=== PATIENT | female | born 1960 | race Caucasian/White ===

== ENCOUNTER 2019-01-04 14:22 | Inpatient (IN) | payer OTHER, MEDICAID ==
--- NOTE | 2019-01-04 14:56 | EDM.PDOC ---
<Elier Ko - Last Filed: 01/04/19 14:50> ED HPI GENERAL MEDICAL PROBLEM - General Chief Complaint: Lower Extremity Injury/Pain Stated Complaint: [facility] Time Seen by Provider: 01/04/19 14:26 Source of Information: Reports: Patient History Limitations: Reports: No Limitations - History of Present Illness INITIAL COMMENTS - FREE TEXT/NARRATIVE: Joana Dunne is a 58 year old female who presents to the ED with right foot pain. She is a HER 3 positive lobular breast cancer patient. She received chemotherapy 3 1/2 weeks ago. Starting about 4 days ago she has been having this increased foot pain. She states that it feels a lot like Plantar Fascitis, but a lot worse. She describes the pain as a sharp pressure when aggravated and then a dull pain when she's non-weight bearing. She states that she only feels the pain whenever it's touched or a lot of pressure is applied. She works a school bus driving and she denies any sort of trauma or fall associated with the pain. She also denies any other PM hx. other than the breast cancer. Right Foot Pain Score (Numeric/FACES): 10 - Related Data Allergies Allergy/AdvReac Type Severity Reaction Status Date / Time methylphenidate Allergy Unknown UNKNOWN Verified 09/30/18 12:58 [From Ritalin] Social & Family History - Tobacco Use Smoking Status *Q: Never Smoker - Caffeine Use Caffeine Use: Reports: Coffee, Tea - Recreational Drug Use Recreational Drug Use: No Review of Systems - Review of Systems Constitutional: Reports: Chills, Fever (Measured a 100 and 103 fever over the last 3 days.) Respiratory: Reports: No Symptoms Cardiovascular: Reports: No Symptoms GI/Abdominal: Reports: No Symptoms Musculoskeletal: Reports: Foot Pain (right foot). Denies: Joint Pain (No pain in ankle, knee, or MTP joints), Joint Swelling Skin: Reports: Erythema (located on the Lateral aspect of the right foot. Patient just noticed upon arrival.). Denies: Cyanosis, Bruising, Change in Hair /Nails Neurological: Reports: No Symptoms ED EXAM, GENERAL - Physical Exam Exam: See Below Exam Limited By: No Limitations General Appearance: Alert, WD/WN, No Apparent Distress Eye Exam: Bilateral Eye: Normal Inspection Ears: Hearing Grossly Normal Respiratory/Chest: No Respiratory Distress, Lungs Clear, Normal Breath Sounds, No Accessory Muscle Use, Chest Non-Tender Cardiovascular: Normal Peripheral Pulses, Regular Rate, Rhythm, No Edema, No Gallop, No JVD, No Murmur, No Rub Peripheral Pulses: 2+: Posterior Tibial (L), Posterior Tibial (R), Dorsalis Pedis (L), Dorsalis Pedis (R) Extremities: Normal Capillary Refill, Pedal Edema (+1 edema noted on dorsal aspect of right foot), Limited Range of Motion (Passive and Active due to pain) , Increased Warmth (Within the erythematic region located on the lateral aspect of the right foot), Redness (On the lateral aspect of the right foot). No: Joint Swelling Neurological: Alert, Oriented, Normal Cognition, No Motor/Sensory Deficits, Abnormal Gait (Due to increased pain) Skin Exam: Warm, Dry, Intact, Erythema, Increased Warmth Course - Vital Signs Last Recorded V/S: Last Vital Signs Temp 98.6 F 01/04/19 14:36 Pulse 112 H 01/04/19 14:36 Resp 20 01/04/19 14:36 BP 107/70 01/04/19 14:36 Pulse Ox 93 L 01/04/19 14:36 - Orders/Labs/Meds Orders: Active Orders 24 hr Category Date Time Status Cardiac Monitoring [RC] . DIRECTED Care 01/04/19 14:56 Active Implanted Port Access [RC] ONETIME Care 01/04/19 14:56 Active CULTURE BLOOD [BC] Stat Lab 01/04/19 15:15 Received CULTURE BLOOD [BC] Stat Lab 01/04/19 15:40 Received Vancomycin [Vancocin] 2 gm Med 01/04/19 16:31 Active Sodium Chloride 0.9% [Normal Saline] 250 ml IV ONETIME Blood Culture x2 Reflex Set [OM.PC] Stat Oth 01/04/19 14:58 Ordered Medication Orders Vancomycin HCl 2 gm/ Sodium (Chloride) 250 mls @ 250 mls/hr IV ONETIME ONE Stop: 01/04/19 17:30 Labs: Laboratory Tests 01/04/19 01/04/19 01/04/19 Range/Units 15:15 15:15 15:15 WBC 15.41 H (3.98-10.04) K/mm3 RBC 3.22 L (3.98-5.22) M/mm3 Hgb 9.8 L (11.2-15.7) gm/L Hct 29.7 L (34.1-44.9) % MCV 92.2 (79.4-94.8) fl MCH 30.4 (25.6-32.2) pg MCHC 33.0 (32.2-35.5) g/dl RDW Std Deviation 44.0 (36.4-46.3) fL Plt Count 296 (182-369) K/mm3 MPV 9.9 (9.4-12.3) fl Neut % (Auto) 68.2 (34.0-71.1) % Lymph % (Auto) 15.4 L (19.3-51.7) % [place] % (Auto) 15.4 H (4.7-12.5) % Eos % (Auto) 0.2 L (0.7-5.8) Baso % (Auto) 0.3 (0.1-1.2) % Neut # (Auto) 10.52 H (1.56-6.13) K/mm3 Lymph # (Auto) 2.37 (1.18-3.74) K/mm3 [place] # (Auto) 2.38 H (0.24-0.36) K/mm3 Eos # (Auto) 0.03 L (0.04-0.36) K/mm3 Baso # (Auto) 0.04 (0.01-0.08) K/mm3 Manual Slide Review Abnormal smear ESR 117 H (0-20) mm/hr Sodium 133 L (136-145) mEq/L Potassium 3.4 L (3.5-5.1) mEq/L Chloride 97 L (98-107) mEq/L Carbon Dioxide 26 (21-32) mEq/L Anion Gap 13.4 (5-15) BUN 22 H (7-18) mg/dL Creatinine 1.0 (0.55-1.02) mg/dL Est Cr Clr Drug Dosing 54.51 mL/min Estimated GFR (MDRD) 57 (>60) mL/min BUN/Creatinine Ratio 22.0 H (14-18) Glucose 121 H (74-106) mg/dL Uric Acid 4.3 (2.6-6.0) mg/dL Calcium 9.1 (8.5-10.1) mg/dL Total Bilirubin 1.3 H (0.2-1.0) mg/dL AST 62 H (15-37) U/L ALT 100 H (14-59) U/L Alkaline Phosphatase 211 H (46-116) U/L C-Reactive Protein 42.7 H* (<1.0) mg/dL Total Protein 7.7 (6.4-8.2) g/dl Albumin 2.4 L (3.4-5.0) g/dl Globulin 5.3 gm/dL Albumin/Globulin Ratio 0.5 L (1-2) Meds: Medications Generic Name Dose Route Start Last Admin Trade Name Freq PRN Reason Stop Dose Admin Vancomycin HCl 2 gm/ Sodium 250 mls @ 250 mls/hr 01/04/19 16:31 Chloride IV 01/04/19 17:30 ONETIME ONE Discontinued Medications Generic Name Dose Route Start Last Admin Trade Name Freq PRN Reason Stop Dose Admin Hydromorphone HCl 1 mg 01/04/19 14:59 01/04/19 15:18 Dilaudid IVPUSH 01/04/19 15:00 1 mg ONETIME ONE Administration Departure - Departure Disposition: Admitted As Inpatient 65 Clinical Impression: Cellulitis Qualifiers: Site of cellulitis: extremity Site of cellulitis of extremity: lower extremity Laterality: right Qualified Code(s): L03.115 - Cellulitis of right lower limb Breast cancer Qualifiers: Breast location: unspecified site of breast Estrogen receptor status: unspecified Patient sex: female Laterality: left Qualified Code(s): C50.912 - Malignant neoplasm of unspecified site of left female breast - Discharge Information Referrals: Trini Barrientos MD [Primary Care Provider] - Forms: ED Department Discharge - My Orders Last 24 Hours: My Active Orders 01/04/19 14:56 Cardiac Monitoring [RC] . DIRECTED Implanted Port Access [RC] ONETIME 01/04/19 14:58 Blood Culture x2 Reflex Set [OM.PC] Stat 01/04/19 15:15 CULTURE BLOOD [BC] Stat 01/04/19 15:40 CULTURE BLOOD [BC] Stat 01/04/19 16:31 Vancomycin [Vancocin] 2 gm Sodium Chloride 0.9% [Normal Saline] 250 ml IV ONETIME - Assessment/Plan Last 24 Hours: My Active Orders 01/04/19 14:56 Cardiac Monitoring [RC] . DIRECTED Implanted Port Access [RC] ONETIME 01/04/19 14:58 Blood Culture x2 Reflex Set [OM.PC] Stat 01/04/19 15:15 CULTURE BLOOD [BC] Stat 01/04/19 15:40 CULTURE BLOOD [BC] Stat 01/04/19 16:31 Vancomycin [Vancocin] 2 gm Sodium Chloride 0.9% [Normal Saline] 250 ml IV ONETIME <Abilio Lamas - Last Filed: 01/04/19 17:17> Review of Systems - Review of Systems Review Of Systems: See Below Course - Re-Assessments/Exams Free Text/Narrative Re-Assessment/Exam: 01/04/19 16:44 I examined the patient myself and I agree with Belem's assessment and plan. I ordered my nurse to access her port. I ordered labs, blood cultures, US of her right leg to look for DVT and an x-ray of her foot. Her WBC was elevated at 15.41. Her Hgb was lower at 9.8. Her Na was low at 133. Her K was low at 3.4. Her glucose was elevated at 121. Her total bili is elevated at 1.3. Her AST is elevated at 62. Her ALT is elevated at 100. Her Alk Phos is elevated at 211. Her CRP is elevated at 42.7. Her US shows no DVT. Her x-ray of her foot shows soft tissue swelling. Abnormal mineralization within the base of the third metatarsal with cystic change. As mentioned above this may represent old injury although if patient has acute symptoms to this area, MRI could be considered to further evaluate. I have ordered vancomycin 2 grams IV. 01/04/19 17:11 Her Sed rate was elevated at 117. I feel she needs to be admitted. I called Dr Mendoza and he agreed to the admission. I did try to get an MRI of her foot but that was not available until tomorrow. Departure - Departure Time of Disposition: 17:20 Condition: Fair
[2019-01-04] MEDS ORDERED: HYDROmorphone 1 MG/ML Syringe IVPUSH ONE ×2 (14:59→19:47)
--- NOTE | 2019-01-04 15:55 | CR ---
Right foot: Four views of the right foot were obtained. Comparison: No prior foot exam. Findings: Mildly abnormal mineralization seen at the base of the third metatarsal with cystic change. This most likely represents old injury although if patient has acute symptoms, MRI is recommended to further evaluate. Joint spaces are preserved. Plantar spur seen. Spur is noted at the attachment of the Achilles tendon to the calcaneus. Soft tissue swelling is identified. Impression: 1. Soft tissue swelling. 2. Abnormal mineralization within the base of the third metatarsal with cystic change. As mentioned above, this may represent old injury although if patient has acute symptoms to this area, MRI could be considered to further evaluate. Diagnostic code #3
--- NOTE | 2019-01-04 16:44 | US ---
Right lower extremity deep venous ultrasound: Duplex and color flow imaging was obtained of the right common femoral, proximal greater saphenous, superficial femoral, popliteal, posterior tibial and peroneal veins. Left common femoral vein was also evaluated. Comparison: No prior venous imaging. Findings: Normal phasic flow, augmentation and compression is seen. Edema is noted within the dorsum of the right foot. Impression: 1. Edema within the dorsum of the right foot. 2. No evidence of deep venous thrombosis within the right lower extremity or within the left common femoral vein. Diagnostic code #2
[2019-01-04] MEDS ORDERED: Vancomycin 2 GM in Sodium Chloride 0.9% 500 ML IV ONE (17:18)
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
[2019-01-04] MEDS ORDERED: Ondansetron 4 MG Tab.DIS PO PRN (23:04)
[2019-01-04] MEDS ORDERED: HYDROmorphone 1 MG/ML Syringe IVPUSH PRN (23:04)
[2019-01-04] MEDS ORDERED: cefTRIAXone 2 GM Vial IV SCH (23:15)
[2019-01-05] MEDS: cefTRIAXone 2 GM in Sodium Chloride 0.9% 100 ML IV SCH ×2 (00:08→22:58)
[2019-01-05] MEDS ORDERED: Gadobenate Dimeglumine 529 MG/ML 20 ML SDV IVPUSH ONE (08:20)
[2019-01-05] MEDS ORDERED: HYDROmorphone 0.5 MG/0.5 ML Syringe IVPUSH PRN (08:25)
[2019-01-05] MEDS ORDERED: Sodium Chloride 0.9% 10 ML Syringe FLUSH SCH (08:30)
[2019-01-05] MEDS: oxyCODONE 5 MG Tab PO PRN ×3 (10:06→20:47)
--- NOTE | 2019-01-05 10:22 | MR ---
MRI right foot (without and with intravenous contrast) Technique: T1, fat-suppressed and post-gadolinium T1 fat-suppressed sagittal; T2 fat-suppressed, T2 and T1 fat-suppressed postcontrast coronal; T1, T2 fat-suppressed and T1 fat-suppressed postcontrast axial. Comparison: Previous plain film exam of 01/04/19. Findings: Erosions are identified within the base of the third and fourth metatarsals. Mild edema is noted around these areas of erosions as well as mild enhancement. Mild edema is also noted within the cuboid bone. Degenerative change seen within the tarsometatarsal joints. Diffuse soft tissue edema is seen within the foot. Achilles tendon appears intact. Tendons around the ankle appear intact. Impression: 1. Diffuse soft tissue edema presumably due to cellulitis. 2. Erosions noted within the base of the third and fourth metatarsals with surrounding edema and enhancement. Differential includes erosive arthritis, gout as well as osteomyelitis. 3. Degenerative change with joint space narrowing seen within the tarsometatarsal joints. 4. Mild edema within the cuboid bone with areas of enhancement with same differential as noted above Diagnostic code #3
--- NOTE | 2019-01-05 16:14 | PCM.PN ---
- General Info Date of Service: 01/05/19 Admission Dx/Problem (Free Text): Admission Diagnosis/Problem Admission Diagnosis/Problem Cellulitis Subjective Update: Patient continues to have pain overnight. She has been afebrile. Blood cultures did come back positive for gram-positive cocci in clusters. MRI scheduled for today. Functional Status: Reports: Pain Controlled - Review of Systems General: Reports: No Symptoms. Denies: Fever HEENT: Reports: No Symptoms Pulmonary: Reports: No Symptoms. Denies: Shortness of Breath, Cough Cardiovascular: Reports: No Symptoms Gastrointestinal: Reports: No Symptoms. Denies: Abdominal Pain, Constipation Musculoskeletal: Reports: Foot Pain Psychiatric: Reports: No Symptoms - Patient Data Vitals - Most Recent: Last Vital Signs Temp 98.9 F 01/05/19 11:51 Pulse 92 01/05/19 11:51 Resp 16 01/05/19 11:51 BP 137/87 01/05/19 11:51 Pulse Ox 98 01/05/19 11:51 Weight - Most Recent: 224 lb I&O - Last 24 Hours: Intake & Output 01/05/19 01/05/19 01/05/19 06:59 14:59 22:59 Intake Total 1800 120 Output Total 700 Balance 1100 120 Lab Results Last 24 Hours: Laboratory Results - last 24 hr 01/04/19 01/04/19 01/04/19 Range/Units 15:15 15:15 15:15 WBC 15.41 H (3.98-10.04) K/mm3 RBC 3.22 L (3.98-5.22) M/mm3 Hgb 9.8 L (11.2-15.7) gm/L Hct 29.7 L (34.1-44.9) % MCV 92.2 (79.4-94.8) fl MCH 30.4 (25.6-32.2) pg MCHC 33.0 (32.2-35.5) g/dl RDW Std Deviation 44.0 (36.4-46.3) fL Plt Count 296 (182-369) K/mm3 MPV 9.9 (9.4-12.3) fl Neut % (Auto) 68.2 (34.0-71.1) % Lymph % (Auto) 15.4 L (19.3-51.7) % [place] % (Auto) 15.4 H (4.7-12.5) % Eos % (Auto) 0.2 L (0.7-5.8) Baso % (Auto) 0.3 (0.1-1.2) % Neut # (Auto) 10.52 H (1.56-6.13) K/mm3 Lymph # (Auto) 2.37 (1.18-3.74) K/mm3 [place] # (Auto) 2.38 H (0.24-0.36) K/mm3 Eos # (Auto) 0.03 L (0.04-0.36) K/mm3 Baso # (Auto) 0.04 (0.01-0.08) K/mm3 Manual Slide Review Abnormal smear ESR 117 H (0-20) mm/hr Sodium 133 L (136-145) mEq/L Potassium 3.4 L (3.5-5.1) mEq/L Chloride 97 L (98-107) mEq/L Carbon Dioxide 26 (21-32) mEq/L Anion Gap 13.4 (5-15) BUN 22 H (7-18) mg/dL Creatinine 1.0 (0.55-1.02) mg/dL Est Cr Clr Drug Dosing 54.51 mL/min Estimated GFR (MDRD) 57 (>60) mL/min BUN/Creatinine Ratio 22.0 H (14-18) Glucose 121 H (74-106) mg/dL Hemoglobin A1c (4.50-6.20) % Uric Acid 4.3 (2.6-6.0) mg/dL Calcium 9.1 (8.5-10.1) mg/dL Phosphorus (2.6-4.7) mg/dL Magnesium (1.8-2.4) mg/dl Total Bilirubin 1.3 H (0.2-1.0) mg/dL AST 62 H (15-37) U/L ALT 100 H (14-59) U/L Alkaline Phosphatase 211 H (46-116) U/L C-Reactive Protein 42.7 H* (<1.0) mg/dL Total Protein 7.7 (6.4-8.2) g/dl Albumin 2.4 L (3.4-5.0) g/dl Globulin 5.3 gm/dL Albumin/Globulin Ratio 0.5 L (1-2) 01/05/19 01/05/19 01/05/19 Range/Units 06:28 06:28 06:28 WBC 12.25 H (3.98-10.04) K/mm3 RBC 3.13 L (3.98-5.22) M/mm3 Hgb 9.6 L (11.2-15.7) gm/L Hct 29.1 L (34.1-44.9) % MCV 93.0 (79.4-94.8) fl MCH 30.7 (25.6-32.2) pg MCHC 33.0 (32.2-35.5) g/dl RDW Std Deviation 44.8 (36.4-46.3) fL Plt Count 270 (182-369) K/mm3 MPV 10.0 (9.4-12.3) fl Neut % (Auto) 63.8 (34.0-71.1) % Lymph % (Auto) 15.1 L (19.3-51.7) % [place] % (Auto) 18.6 H (4.7-12.5) % Eos % (Auto) 1.6 (0.7-5.8) Baso % (Auto) 0.3 (0.1-1.2) % Neut # (Auto) 7.81 H (1.56-6.13) K/mm3 Lymph # (Auto) 1.85 (1.18-3.74) K/mm3 [place] # (Auto) 2.28 H (0.24-0.36) K/mm3 Eos # (Auto) 0.20 (0.04-0.36) K/mm3 Baso # (Auto) 0.04 (0.01-0.08) K/mm3 Manual Slide Review Abnormal smear ESR (0-20) mm/hr Sodium 132 L (136-145) mEq/L Potassium 4.0 (3.5-5.1) mEq/L Chloride 98 (98-107) mEq/L Carbon Dioxide 25 (21-32) mEq/L Anion Gap 13.0 (5-15) BUN 23 H (7-18) mg/dL Creatinine 0.8 (0.55-1.02) mg/dL Est Cr Clr Drug Dosing 67.29 mL/min Estimated GFR (MDRD) > 60 (>60) mL/min BUN/Creatinine Ratio 28.8 H (14-18) Glucose 100 (74-106) mg/dL Hemoglobin A1c 6.00 (4.50-6.20) % Uric Acid (2.6-6.0) mg/dL Calcium 9.2 (8.5-10.1) mg/dL Phosphorus 4.4 (2.6-4.7) mg/dL Magnesium 2.4 (1.8-2.4) mg/dl Total Bilirubin 0.7 (0.2-1.0) mg/dL AST 50 H (15-37) U/L ALT 85 H (14-59) U/L Alkaline Phosphatase 182 H (46-116) U/L C-Reactive Protein 22.5 H* (<1.0) mg/dL Total Protein 6.9 (6.4-8.2) g/dl Albumin 2.1 L (3.4-5.0) g/dl Globulin 4.8 gm/dL Albumin/Globulin Ratio 0.4 L (1-2) Asim Results Last 24 Hours: Microbiology 01/04/19 15:15 Aerobic Blood Culture - Preliminary Blood - Venous - Lab Draw NO GROWTH AFTER 1 DAY Anaerobic Blood Culture - Preliminary Gram Positive Cocci 01/04/19 15:40 Aerobic Blood Culture - Preliminary Blood - Venous NO GROWTH AFTER 1 DAY Anaerobic Blood Culture - Preliminary Gram Positive Cocci In Clustrs Med Orders - Current: Current Medications Hydromorphone HCl (Dilaudid) 0.5 mg IVPUSH Q2H PRN PRN Reason: Pain (severe 7-10) Last Admin: 01/05/19 11:50 Dose: 0.5 mg Ceftriaxone Sodium 2 gm/ (Sodium Chloride) 100 mls @ 200 mls/hr IV Q24H [facility] Last Admin: 01/05/19 00:08 Dose: 200 mls/hr Vancomycin HCl 1.25 gm/ Sodium (Chloride) 250 mls @ 167 mls/hr IV Q12H [facility] Last Admin: 01/05/19 11:48 Dose: 167 mls/hr Ondansetron HCl (Zofran Odt) 4 mg PO Q6H PRN PRN Reason: nausea, able to take PO Oxycodone HCl (Oxycodone) 5 mg PO Q4H PRN PRN Reason: Pain (moderate 4-6) Last Admin: 01/05/19 10:06 Dose: 5 mg Vancomycin HCl (Pharmacy To Dose - Vancomycin) 0 dose .XX ASDIRECTED PRN PRN Reason: PHARMACY TO DOSE Discontinued Medications Gadobenate Dimeglumine (Multihance) 20 ml IVPUSH ONETIME ONE Stop: 01/05/19 08:21 Last Admin: 01/05/19 08:50 Dose: 20 ml Hydromorphone HCl (Dilaudid) 1 mg IVPUSH ONETIME ONE Stop: 01/04/19 15:00 Last Admin: 01/04/19 15:18 Dose: 1 mg Hydromorphone HCl (Dilaudid) 1 mg IVPUSH ONETIME ONE Stop: 01/04/19 19:48 Last Admin: 01/04/19 20:01 Dose: 1 mg Hydromorphone HCl (Dilaudid) 0.5 mg IVPUSH Q2H PRN PRN Reason: Pain (severe 7-10) Vancomycin HCl 2 gm/ Sodium (Chloride) 250 mls @ 250 mls/hr IV ONETIME ONE Stop: 01/04/19 17:30 Last Admin: 01/04/19 17:34 Dose: Not Given Vancomycin HCl 2 gm/ Sodium (Chloride) 500 mls @ 250 mls/hr IV ONETIME ONE Stop: 01/04/19 18:30 Last Admin: 01/04/19 17:34 Dose: 250 mls/hr Vancomycin HCl 1 gm/ Sodium (Chloride) 250 mls @ 250 mls/hr IV ONETIME ONE Stop: 01/04/19 18:29 Last Admin: 01/04/19 17:50 Dose: Not Given Sodium Chloride (Saline Flush) 10 ml FLUSH ASDIRECTED AJIT Stop: 01/05/19 11:00 Last Admin: 01/05/19 08:50 Dose: 10 ml - Exam Quality Assessment: No: Supplemental Oxygen General: Alert, Oriented HEENT: Pupils Equal, Pupils Reactive Neck: Supple Lungs: Clear to Auscultation, Normal Respiratory Effort Cardiovascular: Regular Rate, Regular Rhythm GI/Abdominal Exam: Normal Bowel Sounds Extremities: Normal Range of Motion, Other (Right foot pain continues to be tender to palpation and mildly swollen. It is improved from yesterday. It is on the lateral dorsal aspect) Skin: Warm - Problem List & Annotations (1) Breast cancer SNOMED Code(s): 877143586 Code(s): C50.919 - MALIGNANT NEOPLASM OF UNSP SITE OF UNSPECIFIED FEMALE BREAST Status: Acute Current Visit: Yes Qualifiers: Breast location: unspecified site of breast Estrogen receptor status: unspecified Patient sex: female Laterality: left Qualified Code(s): C50.912 - Malignant neoplasm of unspecified site of left female breast (2) Cellulitis SNOMED Code(s): 578649380 Code(s): L03.90 - CELLULITIS, UNSPECIFIED Status: Acute Current Visit: Yes Qualifiers: Site of cellulitis: extremity Site of cellulitis of extremity: lower extremity Laterality: right Qualified Code(s): L03.115 - Cellulitis of right lower limb - Problem List Review Problem List Initiated/Reviewed/Updated: Yes - My Orders Last 24 Hours: My Active Orders 01/04/19 19:54 Resuscitation Status Routine 01/04/19 23:00 cefTRIAXone [Rocephin] 2 gm Sodium Chloride 0.9% [Normal Saline] 100 ml IV Q24H 01/04/19 23:04 Height and Weight [RC] 04 Oxygen Therapy [RC] PRN Up With Assistance [RC] ASDIRECTED VTE/DVT Education [RC] PER UNIT ROUTINE Vital Signs [RC] Q4HR Ondansetron [Zofran ODT] 4 mg PO Q6H PRN oxyCODONE 5 mg PO Q4H PRN 01/04/19 23:05 Intake and Output [RC] 04,16 01/05/19 07:47 Antiembolic Devices [RC] PER UNIT ROUTINE 01/05/19 08:25 HYDROmorphone [Dilaudid] 0.5 mg IVPUSH Q2H PRN 01/05/19 10:54 Notify Provider Consults [RC] ASDIRECTED Consult to Physician [CONS] Routine 01/05/19 10:59 Pharmacy to Dose - Vancomycin 0 dose .XX ASDIRECTED PRN 01/05/19 11:30 Vancomycin 1.25 gm Sodium Chloride 0.9% [Normal Saline] 250 ml IV Q12H 01/05/19 Breakfast Regular Diet [DIET] 01/06/19 05:11 C-REACTIVE PROTEIN [CHEM] AM CBC WITH AUTO DIFF [HEME] AM CMP [COMPREHENSIVE METABOLIC PN,CMP] [CHEM] AM 01/06/19 11:00 VANCOMYCIN TROUGH [CHEM] Timed - Plan Plan:: Cellulitis right foot with osteomyelitis * Patient started on vancomycin in the emergency room. * White count improved this morning and down from 15,000 to 12,000 * CBC in the morning * I will add Rocephin for gram-negative coverage * MRI in the morning. * Pain control * MRI findings are consistent with osteomyelitis. Blood cultures were also positive. * IV antibiotics will be tailored to blood culture results. * IV antibiotics for 6 weeks per orthopedics. Gram-positive cocci in clusters on blood culture results * Pending identification and sensitivity Supraventricular tachycardia * Patient did have a run of ventricular tachycardia that was asymptomatic that spontaneously converted during the day. * Continue monitoring on telemetry. HER 3 positive lobular breast cancer * First chemotherapy was 3 weeks ago. Next dose is due on Friday Hyponatremia * Repeat CMP in the morning. Hypokalemia * Resolved MRI results: 1. diffuse soft tissue edema presumably due to cellulitis, to. Erosions noted within the base of the third and fourth metatarsals with surrounding edema and enhancement. Differential includes erosive arthritis, gout , as well as osteomyelitis. 3. Degenerative change with joint space narrowing seen within the tarsometatarsal joints. 4. Mild edema within the cuboid bone with areas of enhancement with same differential as noted above. VTE prophylaxis: Lovenox Discharge planning: Patient will be discharged home with 6 weeks of IV antibiotics after blood culture results narrow antibiotic coverage. CODE STATUS: Full code
[2019-01-05] MEDS: Enoxaparin 40 MG/0.4 ML Syringe SUBCUT SCH (17:12)
[2019-01-06] MEDS: oxyCODONE 5 MG Tab PO PRN ×2 (02:45→21:16)
[2019-01-06] MEDS: Enoxaparin 40 MG/0.4 ML Syringe SUBCUT SCH (07:59)
--- NOTE | 2019-01-06 08:19 | PCM.PN ---
- General Info Date of Service: 01/06/19 Admission Dx/Problem (Free Text): Admission Diagnosis/Problem Admission Diagnosis/Problem Cellulitis Subjective Update: In to see Joana. She reports her pain is about the same. She is now complaining of some left knee pain so Dr. Meza who did order a x-ray of this. He contacted her oncologist, Dr. Coates, about concerns over bacteremia and her port. He reports that ideally she should've had blood drawn in the ED from the port which would show us some possible contamination for a baseline. He suggested obtained both peripheral and port accessed blood cultures after 48 hours of IV antibiotics. He would then like me to contact him in the future to discuss the results of these cultures. Otherwise CRP and white count had improved. She's not had any fevers. She has been receiving Rocephin and IV vancomycin. We discussed her likely need for continued hospitalization for some time until cultures return negative. Dr. Mendoza has been into see the patient as well. Functional Status: Reports: Pain Controlled, Tolerating Diet, Ambulating, Urinating. Denies: New Symptoms - Review of Systems General: Reports: Weakness. Denies: Fever, Fatigue, Malaise, Chills HEENT: Reports: No Symptoms. Denies: Headaches, Sore Throat, Rhinitis Pulmonary: Reports: No Symptoms. Denies: Shortness of Breath, Pleuritic Chest Pain, Cough, Sputum, Wheezing Cardiovascular: Reports: No Symptoms. Denies: Chest Pain, Palpitations, Dyspnea on Exertion Gastrointestinal: Reports: No Symptoms. Denies: Abdominal Pain, Constipation, Decreased Appetite, Diarrhea, Nausea, Vomiting Genitourinary: Reports: No Symptoms. Denies: Pain Musculoskeletal: Reports: Foot Pain (right foot ), Joint Pain (Left knee ) Skin: Reports: No Symptoms Neurological: Reports: Difficulty Walking. Denies: Headache, Numbness, Tingling , Trouble Speaking Psychiatric: Reports: No Symptoms. Denies: Confusion - Patient Data Vitals - Most Recent: Last Vital Signs Temp 98.8 F 01/06/19 05:21 Pulse 93 01/06/19 05:21 Resp 20 01/06/19 05:21 BP 139/84 01/06/19 05:21 Pulse Ox 94 L 01/06/19 05:21 Weight - Most Recent: 226 lb 12.8 oz I&O - Last 24 Hours: Intake & Output 01/05/19 01/06/19 01/06/19 22:59 06:59 14:59 Intake Total 1250 750 Output Total 700 700 Balance 550 50 Lab Results Last 24 Hours: Laboratory Results - last 24 hr 01/05/19 01/05/19 01/06/19 Range/Units 06:28 06:28 06:03 WBC 9.44 (3.98-10.04) K/mm3 RBC 3.09 L (3.98-5.22) M/mm3 Hgb 9.4 L (11.2-15.7) gm/L Hct 29.2 L (34.1-44.9) % MCV 94.5 (79.4-94.8) fl MCH 30.4 (25.6-32.2) pg MCHC 32.2 (32.2-35.5) g/dl RDW Std Deviation 45.3 (36.4-46.3) fL Plt Count 310 (182-369) K/mm3 MPV 9.8 (9.4-12.3) fl Neut % (Auto) 65.1 (34.0-71.1) % Lymph % (Auto) 18.0 L (19.3-51.7) % [place] % (Auto) 13.7 H (4.7-12.5) % Eos % (Auto) 2.4 (0.7-5.8) Baso % (Auto) 0.4 (0.1-1.2) % Neut # (Auto) 6.14 H (1.56-6.13) K/mm3 Lymph # (Auto) 1.70 (1.18-3.74) K/mm3 [place] # (Auto) 1.29 H (0.24-0.36) K/mm3 Eos # (Auto) 0.23 (0.04-0.36) K/mm3 Baso # (Auto) 0.04 (0.01-0.08) K/mm3 Sodium (136-145) mEq/L Potassium (3.5-5.1) mEq/L Chloride (98-107) mEq/L Carbon Dioxide (21-32) mEq/L Anion Gap (5-15) BUN (7-18) mg/dL Creatinine (0.55-1.02) mg/dL Est Cr Clr Drug Dosing mL/min Estimated GFR (MDRD) (>60) mL/min BUN/Creatinine Ratio (14-18) Glucose (74-106) mg/dL Hemoglobin A1c 6.00 (4.50-6.20) % Calcium (8.5-10.1) mg/dL Total Bilirubin (0.2-1.0) mg/dL AST (15-37) U/L ALT (14-59) U/L Alkaline Phosphatase (46-116) U/L C-Reactive Protein 22.5 H* (<1.0) mg/dL Total Protein (6.4-8.2) g/dl Albumin (3.4-5.0) g/dl Globulin gm/dL Albumin/Globulin Ratio (1-2) 01/06/19 Range/Units 06:03 WBC (3.98-10.04) K/mm3 RBC (3.98-5.22) M/mm3 Hgb (11.2-15.7) gm/L Hct (34.1-44.9) % MCV (79.4-94.8) fl MCH (25.6-32.2) pg MCHC (32.2-35.5) g/dl RDW Std Deviation (36.4-46.3) fL Plt Count (182-369) K/mm3 MPV (9.4-12.3) fl Neut % (Auto) (34.0-71.1) % Lymph % (Auto) (19.3-51.7) % [place] % (Auto) (4.7-12.5) % Eos % (Auto) (0.7-5.8) Baso % (Auto) (0.1-1.2) % Neut # (Auto) (1.56-6.13) K/mm3 Lymph # (Auto) (1.18-3.74) K/mm3 [place] # (Auto) (0.24-0.36) K/mm3 Eos # (Auto) (0.04-0.36) K/mm3 Baso # (Auto) (0.01-0.08) K/mm3 Sodium 133 L (136-145) mEq/L Potassium 3.9 (3.5-5.1) mEq/L Chloride 99 (98-107) mEq/L Carbon Dioxide 26 (21-32) mEq/L Anion Gap 11.9 (5-15) BUN 14 (7-18) mg/dL Creatinine 0.8 (0.55-1.02) mg/dL Est Cr Clr Drug Dosing 67.29 mL/min Estimated GFR (MDRD) > 60 (>60) mL/min BUN/Creatinine Ratio 17.5 (14-18) Glucose 97 (74-106) mg/dL Hemoglobin A1c (4.50-6.20) % Calcium 9.0 (8.5-10.1) mg/dL Total Bilirubin 0.8 (0.2-1.0) mg/dL AST 68 H (15-37) U/L ALT 94 H (14-59) U/L Alkaline Phosphatase 198 H (46-116) U/L C-Reactive Protein 18.7 H* (<1.0) mg/dL Total Protein 7.0 (6.4-8.2) g/dl Albumin 2.1 L (3.4-5.0) g/dl Globulin 4.9 gm/dL Albumin/Globulin Ratio 0.4 L (1-2) Asim Results Last 24 Hours: Microbiology 01/04/19 15:15 Aerobic Blood Culture - Preliminary Blood - Venous - Lab Draw NO GROWTH AFTER 1 DAY Anaerobic Blood Culture - Preliminary Gram Positive Cocci 01/04/19 15:40 Aerobic Blood Culture - Preliminary Blood - Venous NO GROWTH AFTER 1 DAY Anaerobic Blood Culture - Preliminary Staphylococcus Aureus Med Orders - Current: Current Medications Enoxaparin Sodium (Lovenox) 40 mg SUBCUT DAILY [facility] Last Admin: 01/06/19 07:59 Dose: 40 mg Hydromorphone HCl (Dilaudid) 0.5 mg IVPUSH Q2H PRN PRN Reason: Pain (severe 7-10) Last Admin: 01/05/19 11:50 Dose: 0.5 mg Ceftriaxone Sodium 2 gm/ (Sodium Chloride) 100 mls @ 200 mls/hr IV Q24H [facility] Last Admin: 01/05/19 22:58 Dose: 200 mls/hr Vancomycin HCl 1.25 gm/ Sodium (Chloride) 250 mls @ 167 mls/hr IV Q12H [facility] Last Admin: 01/05/19 23:38 Dose: 167 mls/hr Ondansetron HCl (Zofran Odt) 4 mg PO Q6H PRN PRN Reason: nausea, able to take PO Oxycodone HCl (Oxycodone) 5 mg PO Q4H PRN PRN Reason: Pain (moderate 4-6) Last Admin: 01/06/19 02:45 Dose: 5 mg Vancomycin HCl (Pharmacy To Dose - Vancomycin) 0 dose .XX ASDIRECTED PRN PRN Reason: PHARMACY TO DOSE Discontinued Medications Gadobenate Dimeglumine (Multihance) 20 ml IVPUSH ONETIME ONE Stop: 01/05/19 08:21 Last Admin: 01/05/19 08:50 Dose: 20 ml Hydromorphone HCl (Dilaudid) 1 mg IVPUSH ONETIME ONE Stop: 01/04/19 15:00 Last Admin: 01/04/19 15:18 Dose: 1 mg Hydromorphone HCl (Dilaudid) 1 mg IVPUSH ONETIME ONE Stop: 01/04/19 19:48 Last Admin: 01/04/19 20:01 Dose: 1 mg Hydromorphone HCl (Dilaudid) 0.5 mg IVPUSH Q2H PRN PRN Reason: Pain (severe 7-10) Vancomycin HCl 2 gm/ Sodium (Chloride) 250 mls @ 250 mls/hr IV ONETIME ONE Stop: 01/04/19 17:30 Last Admin: 01/04/19 17:34 Dose: Not Given Vancomycin HCl 2 gm/ Sodium (Chloride) 500 mls @ 250 mls/hr IV ONETIME ONE Stop: 01/04/19 18:30 Last Admin: 01/04/19 17:34 Dose: 250 mls/hr Vancomycin HCl 1 gm/ Sodium (Chloride) 250 mls @ 250 mls/hr IV ONETIME ONE Stop: 01/04/19 18:29 Last Admin: 01/04/19 17:50 Dose: Not Given Sodium Chloride (Saline Flush) 10 ml FLUSH ASDIRECTED AJIT Stop: 01/05/19 11:00 Last Admin: 01/05/19 08:50 Dose: 10 ml - Exam Quality Assessment: DVT Prophylaxis General: Alert, Oriented, Cooperative, No Acute Distress HEENT: Pupils Equal, Pupils Reactive, EOMI, Mucous Membr. Moist/[place] Neck: Supple, Trachea Midline, No JVD Lungs: Clear to Auscultation, Normal Respiratory Effort Cardiovascular: Regular Rate, Regular Rhythm GI/Abdominal Exam: Normal Bowel Sounds, Soft, Non-Tender, No Distention, No Abnormal Bruit (Female) Exam: Deferred Back Exam: Normal Inspection, Full Range of Motion Extremities: Normal Range of Motion, Leg Pain (right foot pain), Redness (left foot - improving), Other (Improving wound on left foot. Patient reports pain is about the same. ). No: Increased Warmth Peripheral Pulses: 2+: Radial (L), Radial (R), Dorsalis Pedis (L), Dorsalis Pedis (R) Skin: Warm, Dry, Intact Wound/Incisions: Healing Well, No Drainage, Erythema Improving Neurological: No New Focal Deficit Psy/Mental Status: Alert, Normal Affect, Normal Mood - Problem List & Annotations (1) Bacteremia SNOMED Code(s): 7150898 Code(s): R78.81 - BACTEREMIA Status: Acute Priority: High Current Visit : Yes (2) Osteomyelitis SNOMED Code(s): 49180164 Code(s): M86.9 - OSTEOMYELITIS, UNSPECIFIED Status: Suspected Priority: High Current Visit: Yes Qualifiers: Osteomyelitis type: unspecified type Osteomyelitis location: foot Laterality: right Qualified Code(s): M86.9 - Osteomyelitis, unspecified (3) Breast cancer SNOMED Code(s): 348375826 Code(s): C50.919 - MALIGNANT NEOPLASM OF UNSP SITE OF UNSPECIFIED FEMALE BREAST Status: Chronic Priority: Medium Current Visit: No Qualifiers: Breast location: unspecified site of breast Estrogen receptor status: unspecified Patient sex: female Laterality: left Qualified Code(s): C50.912 - Malignant neoplasm of unspecified site of left female breast (4) Cellulitis SNOMED Code(s): 864372389 Code(s): L03.90 - CELLULITIS, UNSPECIFIED Status: Acute Priority: High Current Visit: Yes Qualifiers: Site of cellulitis: extremity Site of cellulitis of extremity: lower extremity Laterality: right Qualified Code(s): L03.115 - Cellulitis of right lower limb (5) Knee pain SNOMED Code(s): 48710638 Code(s): M25.569 - PAIN IN UNSPECIFIED KNEE Status: Acute Priority: High Current Visit: Yes Qualifiers: Chronicity: acute Laterality: left Qualified Code(s): M25.562 - Pain in left knee (6) Port-A-Cath in place SNOMED Code(s): 713975208 Code(s): Z95.828 - PRESENCE OF OTHER VASCULAR IMPLANTS AND GRAFTS Status: Acute Priority: High Current Visit: Yes - Problem List Review Problem List Initiated/Reviewed/Updated: Yes - Plan Plan:: Cellulitis right foot with osteomyelitis * Patient started on vancomycin in the emergency room. * White count improved this morning and down from 15,000 to 12,000 * CBC in the morning * I will add Rocephin for gram-negative coverage * MRI in the morning. * Pain control * MRI findings are consistent with osteomyelitis. Blood cultures were also positive. * MRI results: * 1. diffuse soft tissue edema presumably due to cellulitis * 2. Erosions noted within the base of the third and fourth metatarsals with surrounding edema and enhancement. Differential includes erosive arthritis, gout , as well as osteomyelitis. * 3. Degenerative change with joint space narrowing seen within the tarsometatarsal joints. * 4. Mild edema within the cuboid bone with areas of enhancement with same differential as noted above. * IV antibiotics will be tailored to blood culture results. * IV antibiotics for 6 weeks per orthopedics. * Dr. Bowman, Ortho consulted * Port in place - has not been accessed while here Bacteremia * 4/4 staph aureus. * Pending further identification and sensitivity * Repeat blood cultures 48 hours after first dose of Abx - Both peripheral and through port per oncology Supraventricular tachycardia * Patient did have a run of ventricular tachycardia that was asymptomatic that spontaneously converted during the day. * Continue monitoring on telemetry. * No episodes today HER 3 positive lobular breast cancer * First chemotherapy was 3 weeks ago. Next dose is due on Friday Hyponatremia, stable * Monitor. S/P Hypokalemia Left knee pain * X-ray ordered per ortho VTE prophylaxis: Lovenox Discharge planning: Patient will be discharged home with 6 weeks of IV antibiotics after blood culture results narrow antibiotic coverage. CODE STATUS: Full code
[2019-01-06] MEDS ORDERED: Vancomycin 1 GM, Vancomycin 500 MG in Sodium Chloride 0.9% 500 ML IV SCH (12:00)
[2019-01-06] MEDS: Vancomycin 1 GM, Vancomycin 500 MG in Sodium Chloride 0.9% 500 ML IV SCH ×2 (12:42→23:13)
--- NOTE | 2019-01-06 14:29 | CONS ---
CONSULTING PHYSICIAN: Sean Bowman MD DATE OF CONSULTATION: 01/05/2019 CHIEF COMPLAINT: Right foot pain. HISTORY OF PRESENT ILLNESS: This is a 59-year-old female, who presented to the emergency department for right foot pain. She was subsequently admitted by the hospitalist and has began the workup there, subsequently had positive blood cultures. The right foot pain was worked up and had x-rays as well as MRI and was found to have possible osteomyelitis with no abscess. The patient has been undergoing chemotherapy, her first round was 3-1/2 weeks ago for lobular breast cancer. The patient states that about 4 days ago, she started having increasing foot pain as well as swelling. She has had pain in the past in the foot, but never like this and it become red as well. She subsequently states that she has had pain even with nonweightbearing which is just a dull pain, but it is much worse if it is touch or she applies pressure to the lower extremity. She is a senior technical business analyst and denies any sort of trauma or history of trauma or she denies she is diabetic. PHYSICAL EXAMINATION: GENERAL: Alert, lying in bed. Her skin is intact. There is a minor amount erythema noted over the lateral midfoot but it was very minimal. It does decrease with elevation of the lower extremity. She is able move all toes. There is no signs of ulcerations or open sores. She is able to dorsiflex plantar flex her ankle. She does have severe tenderness to palpation over the midfoot. Positive midfoot squeeze test otherwise neurovascularly intact from medial, plantar, and first dorsal was a 2+ dorsalis pedis and posterior tibial pulses radiographs. Radiographs were reviewed, showing significant erosions noted at the space of the 3rd and 4th metatarsals indicative of either chronic osteomyelitis or erosive arthropathy or possible Charcot. ASSESSMENT: Right foot possible osteomyelitis. PLAN: At this time, I did discuss with the patient that at this point, it is difficult to ascertain exactly when this happened in the foot. At this time, secondary to the patient's symptoms of just 4 days and with the chronic changes on radiographs, it is unlikely that this is an acute osteomyelitis without much bony change and radiographs at this point is that usually does take months to get them on the change on radiographs. At this point, we will plan on drawing a hemoglobin A1c and the patient to make sure this is not Charcot arthropathy and we will plan on following the patient's blood cultures and CRP to see if it improves. I would plan on seeing the patient back in a few week's time. I would also recommend Infectious Disease consultation and consultation with her cancer specialist to see if there is any way this could be metastasized as well. I will plan on following the patient as she is and end patient here at the hospital. MAGDI /[id number]
[2019-01-06] MEDS ORDERED: Docusate Sodium 100 MG Cap PO PRN (16:35)
[2019-01-06] MEDS: cefTRIAXone 2 GM in Sodium Chloride 0.9% 100 ML IV SCH (22:27)
[2019-01-07] MEDS: oxyCODONE 5 MG Tab PO PRN ×3 (02:38→16:52)
--- NOTE | 2019-01-07 06:20 | PCM.PN ---
<Matias Luque - Last Filed: 01/07/19 11:14> - General Info Date of Service: 01/07/19 Admission Dx/Problem (Free Text): Admission Diagnosis/Problem Admission Diagnosis/Problem Cellulitis Functional Status: Reports: Pain Controlled, Tolerating Diet, Ambulating, Urinating. Denies: New Symptoms - Review of Systems General: Reports: Weakness (imprvoing ). Denies: Fever, Fatigue, Malaise, Chills HEENT: Denies: Headaches, Sore Throat Pulmonary: Denies: Shortness of Breath, Cough, Sputum, Wheezing Cardiovascular: Denies: Chest Pain, Palpitations, Dyspnea on Exertion, Edema Gastrointestinal: Denies: Abdominal Pain, Constipation, Diarrhea, Nausea, Vomiting Genitourinary: Denies: Pain Musculoskeletal: Reports: Leg Pain (Left knee - stable ), Foot Pain (Right - improving ) Skin: Reports: No Symptoms Neurological: Reports: Difficulty Walking, Weakness, Gait Disturbance. Denies: Confusion, Trouble Speaking Psychiatric: Reports: No Symptoms - Patient Data Vitals - Most Recent: Last Vital Signs Temp 98.2 F 01/07/19 04:23 Pulse 95 01/07/19 04:23 Resp 16 01/07/19 04:23 BP 150/86 H 01/07/19 04:23 Pulse Ox 95 01/07/19 04:23 Weight - Most Recent: 227 lb 8 oz I&O - Last 24 Hours: Intake & Output 01/06/19 01/06/19 01/07/19 14:59 22:59 06:59 Intake Total 1220 1820 Output Total 900 1650 Balance 320 170 Lab Results Last 24 Hours: Laboratory Results - last 24 hr 01/06/19 01/06/19 01/06/19 Range/Units 06:03 06:03 11:06 WBC 9.44 (3.98-10.04) K/mm3 RBC 3.09 L (3.98-5.22) M/mm3 Hgb 9.4 L (11.2-15.7) gm/L Hct 29.2 L (34.1-44.9) % MCV 94.5 (79.4-94.8) fl MCH 30.4 (25.6-32.2) pg MCHC 32.2 (32.2-35.5) g/dl RDW Std Deviation 45.3 (36.4-46.3) fL Plt Count 310 (182-369) K/mm3 MPV 9.8 (9.4-12.3) fl Neut % (Auto) 65.1 (34.0-71.1) % Lymph % (Auto) 18.0 L (19.3-51.7) % [place] % (Auto) 13.7 H (4.7-12.5) % Eos % (Auto) 2.4 (0.7-5.8) Baso % (Auto) 0.4 (0.1-1.2) % Neut # (Auto) 6.14 H (1.56-6.13) K/mm3 Lymph # (Auto) 1.70 (1.18-3.74) K/mm3 [place] # (Auto) 1.29 H (0.24-0.36) K/mm3 Eos # (Auto) 0.23 (0.04-0.36) K/mm3 Baso # (Auto) 0.04 (0.01-0.08) K/mm3 Sodium 133 L (136-145) mEq/L Potassium 3.9 (3.5-5.1) mEq/L Chloride 99 (98-107) mEq/L Carbon Dioxide 26 (21-32) mEq/L Anion Gap 11.9 (5-15) BUN 14 (7-18) mg/dL Creatinine 0.8 (0.55-1.02) mg/dL Est Cr Clr Drug Dosing 67.29 mL/min Estimated GFR (MDRD) > 60 (>60) mL/min BUN/Creatinine Ratio 17.5 (14-18) Glucose 97 (74-106) mg/dL Calcium 9.0 (8.5-10.1) mg/dL Total Bilirubin 0.8 (0.2-1.0) mg/dL AST 68 H (15-37) U/L ALT 94 H (14-59) U/L Alkaline Phosphatase 198 H (46-116) U/L C-Reactive Protein 18.7 H* (<1.0) mg/dL Total Protein 7.0 (6.4-8.2) g/dl Albumin 2.1 L (3.4-5.0) g/dl Globulin 4.9 gm/dL Albumin/Globulin Ratio 0.4 L (1-2) Vancomycin Trough 12.7 (10.0-20.0) 01/07/19 Range/Units 05:05 WBC 8.26 (3.98-10.04) K/mm3 RBC 2.95 L (3.98-5.22) M/mm3 Hgb 9.0 L (11.2-15.7) gm/L Hct 27.8 L (34.1-44.9) % MCV 94.2 (79.4-94.8) fl MCH 30.5 (25.6-32.2) pg MCHC 32.4 (32.2-35.5) g/dl RDW Std Deviation 44.1 (36.4-46.3) fL Plt Count 302 (182-369) K/mm3 MPV 9.8 (9.4-12.3) fl Neut % (Auto) 57.6 (34.0-71.1) % Lymph % (Auto) 20.5 (19.3-51.7) % [place] % (Auto) 17.6 H (4.7-12.5) % Eos % (Auto) 3.3 (0.7-5.8) Baso % (Auto) 0.4 (0.1-1.2) % Neut # (Auto) 4.77 (1.56-6.13) K/mm3 Lymph # (Auto) 1.69 (1.18-3.74) K/mm3 [place] # (Auto) 1.45 H (0.24-0.36) K/mm3 Eos # (Auto) 0.27 (0.04-0.36) K/mm3 Baso # (Auto) 0.03 (0.01-0.08) K/mm3 Sodium (136-145) mEq/L Potassium (3.5-5.1) mEq/L Chloride (98-107) mEq/L Carbon Dioxide (21-32) mEq/L Anion Gap (5-15) BUN (7-18) mg/dL Creatinine (0.55-1.02) mg/dL Est Cr Clr Drug Dosing mL/min Estimated GFR (MDRD) (>60) mL/min BUN/Creatinine Ratio (14-18) Glucose (74-106) mg/dL Calcium (8.5-10.1) mg/dL Total Bilirubin (0.2-1.0) mg/dL AST (15-37) U/L ALT (14-59) U/L Alkaline Phosphatase (46-116) U/L C-Reactive Protein (<1.0) mg/dL Total Protein (6.4-8.2) g/dl Albumin (3.4-5.0) g/dl Globulin gm/dL Albumin/Globulin Ratio (1-2) Vancomycin Trough (10.0-20.0) Asim Results Last 24 Hours: Microbiology 01/04/19 15:40 Aerobic Blood Culture - Preliminary Blood - Venous Staphylococcus Aureus Anaerobic Blood Culture - Preliminary Staphylococcus Aureus 01/04/19 15:15 Aerobic Blood Culture - Preliminary Blood - Venous - Lab Draw Staphylococcus Aureus Anaerobic Blood Culture - Preliminary Staphylococcus Aureus Med Orders - Current: Current Medications Docusate Sodium (Colace) 100 mg PO DAILY PRN PRN Reason: Constipation Last Admin: 01/06/19 21:19 Dose: 100 mg Enoxaparin Sodium (Lovenox) 40 mg SUBCUT DAILY [facility] Last Admin: 01/06/19 07:59 Dose: 40 mg Hydromorphone HCl (Dilaudid) 0.5 mg IVPUSH Q2H PRN PRN Reason: Pain (severe 7-10) Last Admin: 01/05/19 11:50 Dose: 0.5 mg Ceftriaxone Sodium 2 gm/ (Sodium Chloride) 100 mls @ 200 mls/hr IV Q24H [facility] Last Admin: 01/06/19 22:27 Dose: 200 mls/hr Vancomycin HCl 1 gm/Vancomycin HCl 500 mg/ Sodium Chloride 500 mls @ 250 mls/ hr IV Q12H [facility] Last Admin: 01/06/19 23:13 Dose: 250 mls/hr Ondansetron HCl (Zofran Odt) 4 mg PO Q6H PRN PRN Reason: nausea, able to take PO Oxycodone HCl (Oxycodone) 5 mg PO Q4H PRN PRN Reason: Pain (moderate 4-6) Last Admin: 01/07/19 02:38 Dose: 5 mg Vancomycin HCl (Pharmacy To Dose - Vancomycin) 0 dose .XX ASDIRECTED PRN PRN Reason: PHARMACY TO DOSE Discontinued Medications Gadobenate Dimeglumine (Multihance) 20 ml IVPUSH ONETIME ONE Stop: 01/05/19 08:21 Last Admin: 01/05/19 08:50 Dose: 20 ml Heparin Sodium (Porcine) (Heparin Lock Flush 100 Units/Ml) 500 units FLUSH ASDIRECTED ONE Stop: 01/06/19 21:46 Last Admin: 01/06/19 22:26 Dose: 500 units Hydromorphone HCl (Dilaudid) 1 mg IVPUSH ONETIME ONE Stop: 01/04/19 15:00 Last Admin: 01/04/19 15:18 Dose: 1 mg Hydromorphone HCl (Dilaudid) 1 mg IVPUSH ONETIME ONE Stop: 01/04/19 19:48 Last Admin: 01/04/19 20:01 Dose: 1 mg Hydromorphone HCl (Dilaudid) 0.5 mg IVPUSH Q2H PRN PRN Reason: Pain (severe 7-10) Vancomycin HCl 2 gm/ Sodium (Chloride) 250 mls @ 250 mls/hr IV ONETIME ONE Stop: 01/04/19 17:30 Last Admin: 01/04/19 17:34 Dose: Not Given Vancomycin HCl 2 gm/ Sodium (Chloride) 500 mls @ 250 mls/hr IV ONETIME ONE Stop: 01/04/19 18:30 Last Admin: 01/04/19 17:34 Dose: 250 mls/hr Vancomycin HCl 1 gm/ Sodium (Chloride) 250 mls @ 250 mls/hr IV ONETIME ONE Stop: 01/04/19 18:29 Last Admin: 01/04/19 17:50 Dose: Not Given Vancomycin HCl 1.25 gm/ Sodium (Chloride) 250 mls @ 167 mls/hr IV Q12H [facility] Last Admin: 01/06/19 11:46 Dose: Not Given Vancomycin HCl 1 gm/Vancomycin HCl 500 mg/ Sodium Chloride 500 mls @ 250 mls/ hr IV Q12H [facility] Last Admin: 01/06/19 12:20 Dose: Not Given Sodium Chloride (Saline Flush) 10 ml FLUSH ASDIRECTED [facility] Stop: 01/05/19 11:00 Last Admin: 01/05/19 08:50 Dose: 10 ml - Exam Quality Assessment: DVT Prophylaxis General: Alert, Oriented, Cooperative, No Acute Distress HEENT: Pupils Equal, Pupils Reactive, EOMI, Mucous Membr. Moist/[place] Neck: Supple, Trachea Midline, No JVD Lungs: Clear to Auscultation, Normal Respiratory Effort Cardiovascular: Regular Rate, Regular Rhythm GI/Abdominal Exam: Normal Bowel Sounds, Soft, Non-Tender, No Distention, No Abnormal Bruit (Female) Exam: Deferred Back Exam: Normal Inspection, Full Range of Motion Extremities: Normal Capillary Refill, Pedal Edema (minimal left edema 2/2 inflammation ), Leg Pain (right foot - improved, left knee -stable ), Redness ( improved to resolved ). No: Increased Warmth Peripheral Pulses: 2+: Radial (L), Radial (R), Dorsalis Pedis (L), Dorsalis Pedis (R) Skin: Warm, Dry, Intact Wound/Incisions: No Drainage, Erythema Improving Neurological: No New Focal Deficit Psy/Mental Status: Alert, Normal Affect, Normal Mood - Problem List & Annotations (1) Bacteremia SNOMED Code(s): 5097390 Code(s): R78.81 - BACTEREMIA Status: Acute Priority: High Current Visit : Yes (2) Osteomyelitis SNOMED Code(s): 02564438 Code(s): M86.9 - OSTEOMYELITIS, UNSPECIFIED Status: Suspected Priority: High Current Visit: Yes Qualifiers: Osteomyelitis type: unspecified type Osteomyelitis location: foot Laterality: right Qualified Code(s): M86.9 - Osteomyelitis, unspecified (3) Breast cancer SNOMED Code(s): 865736859 Code(s): C50.919 - MALIGNANT NEOPLASM OF UNSP SITE OF UNSPECIFIED FEMALE BREAST Status: Chronic Priority: Medium Current Visit: No Qualifiers: Breast location: unspecified site of breast Estrogen receptor status: unspecified Patient sex: female Laterality: left Qualified Code(s): C50.912 - Malignant neoplasm of unspecified site of left female breast (4) Cellulitis SNOMED Code(s): 421290032 Code(s): L03.90 - CELLULITIS, UNSPECIFIED Status: Acute Priority: High Current Visit: Yes Qualifiers: Site of cellulitis: extremity Site of cellulitis of extremity: lower extremity Laterality: right Qualified Code(s): L03.115 - Cellulitis of right lower limb (5) Knee pain SNOMED Code(s): 49591484 Code(s): M25.569 - PAIN IN UNSPECIFIED KNEE Status: Acute Priority: High Current Visit: Yes Qualifiers: Chronicity: acute Laterality: left Qualified Code(s): M25.562 - Pain in left knee (6) Port-A-Cath in place SNOMED Code(s): 747365155 Code(s): Z95.828 - PRESENCE OF OTHER VASCULAR IMPLANTS AND GRAFTS Status: Acute Priority: High Current Visit: Yes - Problem List Review Problem List Initiated/Reviewed/Updated: Yes - My Orders Last 24 Hours: My Active Orders 01/06/19 15:53 Consult to Case Management/Career Technical Education Instructor [CONS] Routine 01/06/19 21:01 Blood Culture x2 Reflex Set [OM.PC] Stat 01/06/19 21:40 CULTURE BLOOD [BC] Stat 01/06/19 21:55 CULTURE BLOOD [BC] Stat 01/06/19 22:15 CULTURE BLOOD [BC] Routine 01/07/19 05:05 CBC WITH AUTO DIFF [HEME] AM CMP [COMPREHENSIVE METABOLIC PN,CMP] [CHEM] AM CRP [C-REACTIVE PROTEIN] [CHEM] AM MAGNESIUM [CHEM] AM 01/08/19 05:11 CBC WITH AUTO DIFF [HEME] AM CMP [COMPREHENSIVE METABOLIC PN,CMP] [CHEM] AM CRP [C-REACTIVE PROTEIN] [CHEM] AM MAGNESIUM [CHEM] AM 01/09/19 05:11 CBC WITH AUTO DIFF [HEME] AM CMP [COMPREHENSIVE METABOLIC PN,CMP] [CHEM] AM CRP [C-REACTIVE PROTEIN] [CHEM] AM MAGNESIUM [CHEM] AM 01/10/19 05:11 CBC WITH AUTO DIFF [HEME] AM CMP [COMPREHENSIVE METABOLIC PN,CMP] [CHEM] AM CRP [C-REACTIVE PROTEIN] [CHEM] AM MAGNESIUM [CHEM] AM - Plan Plan:: Cellulitis right foot with osteomyelitis * Patient started on vancomycin in the emergency room. * White count improved this morning and down from 15,000 to 12,000 * CBC in the morning * I will add Rocephin for gram-negative coverage * Pain control * MRI findings are consistent with osteomyelitis. Blood cultures were also positive. * MRI results: * 1. diffuse soft tissue edema presumably due to cellulitis * 2. Erosions noted within the base of the third and fourth metatarsals with surrounding edema and enhancement. Differential includes erosive arthritis, gout , as well as osteomyelitis. * 3. Degenerative change with joint space narrowing seen within the tarsometatarsal joints. * 4. Mild edema within the cuboid bone with areas of enhancement with same differential as noted above. * IV antibiotics will be tailored to blood culture results. * IV antibiotics for 6 weeks per orthopedics. * Dr. Bowman, Ortho consulted * Port in place - has not been accessed while here Bacteremia * / staph aureus. * Pending further identification and sensitivity * Repeat blood cultures 48 hours after first dose of Abx - Both peripheral and through port per oncology Supraventricular tachycardia * Patient did have a run of ventricular tachycardia that was asymptomatic that spontaneously converted during the day. * Continue monitoring on telemetry. * No episodes aside from inial event HER 3 positive lobular breast cancer * First chemotherapy was 3 weeks ago. Next dose is due on Friday S/P Hyponatremia * Monitor. S/P Hypokalemia Left knee pain, stable * X-ray ordered per ortho * Dr. Bowman reports osteopenia and arthritis. No fracture or dislocation. Surgical plate in place. * Suggests follow-up for steroid injection once bacteremia/infection clears up VTE prophylaxis: Lovenox Discharge planning: Patient will be discharged home with 6 weeks of IV antibiotics after blood culture results narrow antibiotic coverage. CODE STATUS: Full code CM/SW for discharge planning LOS>96 HR due to repeat blood cultures and need for continued IV antibiotics <Winter Mendoza - Last Filed: 01/07/19 14:37> - Patient Data Vitals - Most Recent: Last Vital Signs Temp 98.8 F 01/07/19 08:22 Pulse 96 01/07/19 08:22 Resp 18 01/07/19 08:22 BP 141/79 H 01/07/19 09:25 Pulse Ox 97 01/07/19 08:22 I&O - Last 24 Hours: Intake & Output 01/06/19 01/07/19 01/07/19 22:59 06:59 14:59 Intake Total 1220 1820 360 Output Total 900 1650 Balance 320 170 360 Lab Results Last 24 Hours: Laboratory Results - last 24 hr 01/07/19 01/07/19 Range/Units 05:05 05:05 WBC 8.26 (3.98-10.04) K/mm3 RBC 2.95 L (3.98-5.22) M/mm3 Hgb 9.0 L (11.2-15.7) gm/L Hct 27.8 L (34.1-44.9) % MCV 94.2 (79.4-94.8) fl MCH 30.5 (25.6-32.2) pg MCHC 32.4 (32.2-35.5) g/dl RDW Std Deviation 44.1 (36.4-46.3) fL Plt Count 302 (182-369) K/mm3 MPV 9.8 (9.4-12.3) fl Neut % (Auto) 57.6 (34.0-71.1) % Lymph % (Auto) 20.5 (19.3-51.7) % [place] % (Auto) 17.6 H (4.7-12.5) % Eos % (Auto) 3.3 (0.7-5.8) Baso % (Auto) 0.4 (0.1-1.2) % Neut # (Auto) 4.77 (1.56-6.13) K/mm3 Lymph # (Auto) 1.69 (1.18-3.74) K/mm3 [place] # (Auto) 1.45 H (0.24-0.36) K/mm3 Eos # (Auto) 0.27 (0.04-0.36) K/mm3 Baso # (Auto) 0.03 (0.01-0.08) K/mm3 Manual Slide Review Abnormal smear Sodium 137 (136-145) mEq/L Potassium 3.8 (3.5-5.1) mEq/L Chloride 103 (98-107) mEq/L Carbon Dioxide 26 (21-32) mEq/L Anion Gap 11.8 (5-15) BUN 8 (7-18) mg/dL Creatinine 0.7 (0.55-1.02) mg/dL Est Cr Clr Drug Dosing 76.90 mL/min Estimated GFR (MDRD) > 60 (>60) mL/min BUN/Creatinine Ratio 11.4 L (14-18) Glucose 104 (74-106) mg/dL Calcium 8.8 (8.5-10.1) mg/dL Magnesium 2.1 (1.8-2.4) mg/dl Total Bilirubin 0.8 (0.2-1.0) mg/dL AST 93 H (15-37) U/L ALT 121 H (14-59) U/L Alkaline Phosphatase 210 H (46-116) U/L C-Reactive Protein 17.5 H* (<1.0) mg/dL Total Protein 6.9 (6.4-8.2) g/dl Albumin 2.0 L (3.4-5.0) g/dl Globulin 4.9 gm/dL Albumin/Globulin Ratio 0.4 L (1-2) Asim Results Last 24 Hours: Microbiology 01/04/19 15:15 Aerobic Blood Culture - Preliminary Blood - Venous - Lab Draw Staphylococcus Aureus Anaerobic Blood Culture - Preliminary Staphylococcus Aureus 01/04/19 15:40 Aerobic Blood Culture - Preliminary Blood - Venous Staphylococcus Aureus Anaerobic Blood Culture - Preliminary Staphylococcus Aureus Med Orders - Current: Current Medications Docusate Sodium (Colace) 100 mg PO DAILY PRN PRN Reason: Constipation Last Admin: 01/06/19 21:19 Dose: 100 mg Enoxaparin Sodium (Lovenox) 40 mg SUBCUT DAILY [facility] Last Admin: 01/07/19 08:19 Dose: 40 mg Hydromorphone HCl (Dilaudid) 0.5 mg IVPUSH Q2H PRN PRN Reason: Pain (severe 7-10) Last Admin: 01/05/19 11:50 Dose: 0.5 mg Ceftriaxone Sodium 2 gm/ (Sodium Chloride) 100 mls @ 200 mls/hr IV Q24H [facility] Last Admin: 01/06/19 22:27 Dose: 200 mls/hr Vancomycin HCl 1 gm/Vancomycin HCl 500 mg/ Sodium Chloride 500 mls @ 250 mls/ hr IV Q12H [facility] Last Admin: 01/07/19 12:53 Dose: 250 mls/hr Ondansetron HCl (Zofran Odt) 4 mg PO Q6H PRN PRN Reason: nausea, able to take PO Oxycodone HCl (Oxycodone) 5 mg PO Q4H PRN PRN Reason: Pain (moderate 4-6) Last Admin: 01/07/19 08:22 Dose: 5 mg Vancomycin HCl (Pharmacy To Dose - Vancomycin) 0 dose .XX ASDIRECTED PRN PRN Reason: PHARMACY TO DOSE Discontinued Medications Gadobenate Dimeglumine (Multihance) 20 ml IVPUSH ONETIME ONE Stop: 01/05/19 08:21 Last Admin: 01/05/19 08:50 Dose: 20 ml Heparin Sodium (Porcine) (Heparin Lock Flush 100 Units/Ml) 500 units FLUSH ASDIRECTED ONE Stop: 01/06/19 21:46 Last Admin: 01/06/19 22:26 Dose: 500 units Hydromorphone HCl (Dilaudid) 1 mg IVPUSH ONETIME ONE Stop: 01/04/19 15:00 Last Admin: 01/04/19 15:18 Dose: 1 mg Hydromorphone HCl (Dilaudid) 1 mg IVPUSH ONETIME ONE Stop: 01/04/19 19:48 Last Admin: 01/04/19 20:01 Dose: 1 mg Hydromorphone HCl (Dilaudid) 0.5 mg IVPUSH Q2H PRN PRN Reason: Pain (severe 7-10) Vancomycin HCl 2 gm/ Sodium (Chloride) 250 mls @ 250 mls/hr IV ONETIME ONE Stop: 01/04/19 17:30 Last Admin: 01/04/19 17:34 Dose: Not Given Vancomycin HCl 2 gm/ Sodium (Chloride) 500 mls @ 250 mls/hr IV ONETIME ONE Stop: 01/04/19 18:30 Last Admin: 01/04/19 17:34 Dose: 250 mls/hr Vancomycin HCl 1 gm/ Sodium (Chloride) 250 mls @ 250 mls/hr IV ONETIME ONE Stop: 01/04/19 18:29 Last Admin: 01/04/19 17:50 Dose: Not Given Vancomycin HCl 1.25 gm/ Sodium (Chloride) 250 mls @ 167 mls/hr IV Q12H [facility] Last Admin: 01/06/19 11:46 Dose: Not Given Vancomycin HCl 1 gm/Vancomycin HCl 500 mg/ Sodium Chloride 500 mls @ 250 mls/ hr IV Q12H [facility] Last Admin: 01/06/19 12:20 Dose: Not Given Sodium Chloride (Saline Flush) 10 ml FLUSH ASDIRECTED [facility] Stop: 01/05/19 11:00 Last Admin: 01/05/19 08:50 Dose: 10 ml - Problem List & Annotations (1) Breast cancer SNOMED Code(s): 733000862 Code(s): C50.919 - MALIGNANT NEOPLASM OF UNSP SITE OF UNSPECIFIED FEMALE BREAST Status: Chronic Priority: Medium Current Visit: No Qualifiers: Breast location: unspecified site of breast Estrogen receptor status: unspecified Patient sex: female Laterality: left Qualified Code(s): C50.912 - Malignant neoplasm of unspecified site of left female breast (2) Cellulitis SNOMED Code(s): 855236163 Code(s): L03.90 - CELLULITIS, UNSPECIFIED Status: Acute Priority: High Current Visit: Yes Qualifiers: Site of cellulitis: extremity Site of cellulitis of extremity: lower extremity Laterality: right Qualified Code(s): L03.115 - Cellulitis of right lower limb - My Orders Last 24 Hours: My Active Orders 01/06/19 16:35 Docusate Sodium [Colace] 100 mg PO DAILY PRN 01/08/19 11:30 VANCOMYCIN TROUGH [CHEM] Timed - Plan Plan:: Patient was seen and examined and I agree with the above plan.
[2019-01-07] MEDS: Enoxaparin 40 MG/0.4 ML Syringe SUBCUT SCH (08:19)
[2019-01-07] MEDS: Vancomycin 1 GM, Vancomycin 500 MG in Sodium Chloride 0.9% 500 ML IV SCH (12:53)
--- NOTE | 2019-01-07 13:57 | CR ---
Left knee: Two views of the left knee were obtained. Comparison: No prior knee exam. Plate and screws noted within the proximal tibia. Moderately severe medial joint space narrowing is seen. Slight concavity which appears to be due to old fracture noted within the lateral tibial plateau. Spurring is noted within the patella. Joint effusion is seen. No acute abnormality is appreciated. Impression: 1. Degenerative change as noted above. Old healed fracture within the lateral tibial plateau with plate and screws. 2. Joint effusion. 3. Nothing acute is definitely appreciated. Diagnostic code #3 I agree with preliminary report issued by [facility] ([facility] report finalized on 01/06/19, 3:15 PM Central Time.
[2019-01-08] MEDS: cefTRIAXone 2 GM in Sodium Chloride 0.9% 100 ML IV SCH (00:14)
[2019-01-08] MEDS: Vancomycin 1 GM, Vancomycin 500 MG in Sodium Chloride 0.9% 500 ML IV SCH ×2 (00:52→12:19)
[2019-01-08] MEDS: oxyCODONE 5 MG Tab PO PRN ×2 (02:41→10:05)
--- NOTE | 2019-01-08 06:28 | PCM.PN ---
- General Info Date of Service: 01/08/19 Admission Dx/Problem (Free Text): Admission Diagnosis/Problem Admission Diagnosis/Problem Cellulitis - Patient Data Vitals - Most Recent: Last Vital Signs Temp 98.2 F 01/08/19 05:08 Pulse 86 01/08/19 05:08 Resp 15 01/08/19 05:08 BP 158/90 H 01/08/19 05:08 Pulse Ox 93 L 01/08/19 05:08 Weight - Most Recent: 226 lb 8 oz I&O - Last 24 Hours: Intake & Output 01/07/19 01/07/19 01/08/19 14:59 22:59 06:59 Intake Total 360 2170 1400 Output Total 350 2400 Balance 360 1820 -1000 Lab Results Last 24 Hours: Laboratory Results - last 24 hr 01/07/19 01/08/19 Range/Units 05:05 05:35 WBC 8.59 (3.98-10.04) K/mm3 RBC 2.98 L (3.98-5.22) M/mm3 Hgb 9.0 L (11.2-15.7) gm/L Hct 28.2 L (34.1-44.9) % MCV 94.6 (79.4-94.8) fl MCH 30.2 (25.6-32.2) pg MCHC 31.9 L (32.2-35.5) g/dl RDW Std Deviation 44.9 (36.4-46.3) fL Plt Count 346 (182-369) K/mm3 MPV 9.3 L (9.4-12.3) fl Neut % (Auto) 61.4 (34.0-71.1) % Lymph % (Auto) 17.5 L (19.3-51.7) % [place] % (Auto) 15.0 H (4.7-12.5) % Eos % (Auto) 4.9 (0.7-5.8) Baso % (Auto) 0.5 (0.1-1.2) % Neut # (Auto) 5.28 (1.56-6.13) K/mm3 Lymph # (Auto) 1.50 (1.18-3.74) K/mm3 [place] # (Auto) 1.29 H (0.24-0.36) K/mm3 Eos # (Auto) 0.42 H (0.04-0.36) K/mm3 Baso # (Auto) 0.04 (0.01-0.08) K/mm3 Sodium 137 (136-145) mEq/L Potassium 3.8 (3.5-5.1) mEq/L Chloride 103 (98-107) mEq/L Carbon Dioxide 26 (21-32) mEq/L Anion Gap 11.8 (5-15) BUN 8 (7-18) mg/dL Creatinine 0.7 (0.55-1.02) mg/dL Est Cr Clr Drug Dosing 76.90 mL/min Estimated GFR (MDRD) > 60 (>60) mL/min BUN/Creatinine Ratio 11.4 L (14-18) Glucose 104 (74-106) mg/dL Calcium 8.8 (8.5-10.1) mg/dL Magnesium 2.1 (1.8-2.4) mg/dl Total Bilirubin 0.8 (0.2-1.0) mg/dL AST 93 H (15-37) U/L ALT 121 H (14-59) U/L Alkaline Phosphatase 210 H (46-116) U/L C-Reactive Protein 17.5 H* (<1.0) mg/dL Total Protein 6.9 (6.4-8.2) g/dl Albumin 2.0 L (3.4-5.0) g/dl Globulin 4.9 gm/dL Albumin/Globulin Ratio 0.4 L (1-2) Asim Results Last 24 Hours: Microbiology 01/06/19 22:15 Aerobic Blood Culture - Preliminary Blood - Venous NO GROWTH AFTER 1 DAY Anaerobic Blood Culture - Preliminary NO GROWTH AFTER 1 DAY 01/06/19 21:55 Aerobic Blood Culture - Preliminary Blood - Port-A-Cath NO GROWTH AFTER 1 DAY Anaerobic Blood Culture - Preliminary NO GROWTH AFTER 1 DAY 01/06/19 21:40 Aerobic Blood Culture - Preliminary Blood - Port-A-Cath NO GROWTH AFTER 1 DAY Anaerobic Blood Culture - Preliminary NO GROWTH AFTER 1 DAY 01/04/19 15:15 Aerobic Blood Culture - Final Blood - Venous - Lab Draw Staphylococcus Aureus Anaerobic Blood Culture - Preliminary Staphylococcus Aureus 01/04/19 15:40 Aerobic Blood Culture - Final Blood - Venous Staphylococcus Aureus Anaerobic Blood Culture - Preliminary Staphylococcus Aureus Med Orders - Current: Current Medications Docusate Sodium (Colace) 100 mg PO DAILY PRN PRN Reason: Constipation Last Admin: 01/06/19 21:19 Dose: 100 mg Enoxaparin Sodium (Lovenox) 40 mg SUBCUT DAILY [facility] Last Admin: 01/07/19 08:19 Dose: 40 mg Hydromorphone HCl (Dilaudid) 0.5 mg IVPUSH Q2H PRN PRN Reason: Pain (severe 7-10) Last Admin: 01/05/19 11:50 Dose: 0.5 mg Ceftriaxone Sodium 2 gm/ (Sodium Chloride) 100 mls @ 200 mls/hr IV Q24H [facility] Last Admin: 01/08/19 00:14 Dose: 200 mls/hr Vancomycin HCl 1 gm/Vancomycin HCl 500 mg/ Sodium Chloride 500 mls @ 250 mls/ hr IV Q12H [facility] Last Admin: 01/08/19 00:52 Dose: 250 mls/hr Ondansetron HCl (Zofran Odt) 4 mg PO Q6H PRN PRN Reason: nausea, able to take PO Oxycodone HCl (Oxycodone) 5 mg PO Q4H PRN PRN Reason: Pain (moderate 4-6) Last Admin: 01/08/19 02:41 Dose: 5 mg Vancomycin HCl (Pharmacy To Dose - Vancomycin) 0 dose .XX ASDIRECTED PRN PRN Reason: PHARMACY TO DOSE Discontinued Medications Gadobenate Dimeglumine (Multihance) 20 ml IVPUSH ONETIME ONE Stop: 01/05/19 08:21 Last Admin: 01/05/19 08:50 Dose: 20 ml Heparin Sodium (Porcine) (Heparin Lock Flush 100 Units/Ml) 500 units FLUSH ASDIRECTED ONE Stop: 01/06/19 21:46 Last Admin: 01/06/19 22:26 Dose: 500 units Hydromorphone HCl (Dilaudid) 1 mg IVPUSH ONETIME ONE Stop: 01/04/19 15:00 Last Admin: 01/04/19 15:18 Dose: 1 mg Hydromorphone HCl (Dilaudid) 1 mg IVPUSH ONETIME ONE Stop: 01/04/19 19:48 Last Admin: 01/04/19 20:01 Dose: 1 mg Hydromorphone HCl (Dilaudid) 0.5 mg IVPUSH Q2H PRN PRN Reason: Pain (severe 7-10) Vancomycin HCl 2 gm/ Sodium (Chloride) 250 mls @ 250 mls/hr IV ONETIME ONE Stop: 01/04/19 17:30 Last Admin: 01/04/19 17:34 Dose: Not Given Vancomycin HCl 2 gm/ Sodium (Chloride) 500 mls @ 250 mls/hr IV ONETIME ONE Stop: 01/04/19 18:30 Last Admin: 01/04/19 17:34 Dose: 250 mls/hr Vancomycin HCl 1 gm/ Sodium (Chloride) 250 mls @ 250 mls/hr IV ONETIME ONE Stop: 01/04/19 18:29 Last Admin: 01/04/19 17:50 Dose: Not Given Vancomycin HCl 1.25 gm/ Sodium (Chloride) 250 mls @ 167 mls/hr IV Q12H [facility] Last Admin: 01/06/19 11:46 Dose: Not Given Vancomycin HCl 1 gm/Vancomycin HCl 500 mg/ Sodium Chloride 500 mls @ 250 mls/ hr IV Q12H [facility] Last Admin: 01/06/19 12:20 Dose: Not Given Sodium Chloride (Saline Flush) 10 ml FLUSH ASDIRECTED [facility] Stop: 01/05/19 11:00 Last Admin: 01/05/19 08:50 Dose: 10 ml - Problem List & Annotations (1) Bacteremia SNOMED Code(s): 1557931 Code(s): R78.81 - BACTEREMIA Status: Acute Priority: High Current Visit : Yes (2) Osteomyelitis SNOMED Code(s): 54376076 Code(s): M86.9 - OSTEOMYELITIS, UNSPECIFIED Status: Suspected Priority: High Current Visit: Yes Qualifiers: Osteomyelitis type: unspecified type Osteomyelitis location: foot Laterality: right Qualified Code(s): M86.9 - Osteomyelitis, unspecified (3) Breast cancer SNOMED Code(s): 139698278 Code(s): C50.919 - MALIGNANT NEOPLASM OF UNSP SITE OF UNSPECIFIED FEMALE BREAST Status: Chronic Priority: Medium Current Visit: No Qualifiers: Breast location: unspecified site of breast Estrogen receptor status: unspecified Patient sex: female Laterality: left Qualified Code(s): C50.912 - Malignant neoplasm of unspecified site of left female breast (4) Cellulitis SNOMED Code(s): 054777021 Code(s): L03.90 - CELLULITIS, UNSPECIFIED Status: Acute Priority: High Current Visit: Yes Qualifiers: Site of cellulitis: extremity Site of cellulitis of extremity: lower extremity Laterality: right Qualified Code(s): L03.115 - Cellulitis of right lower limb (5) Knee pain SNOMED Code(s): 75227764 Code(s): M25.569 - PAIN IN UNSPECIFIED KNEE Status: Acute Priority: High Current Visit: Yes Qualifiers: Chronicity: acute Laterality: left Qualified Code(s): M25.562 - Pain in left knee (6) Port-A-Cath in place SNOMED Code(s): 189368671 Code(s): Z95.828 - PRESENCE OF OTHER VASCULAR IMPLANTS AND GRAFTS Status: Acute Priority: High Current Visit: Yes - My Orders Last 24 Hours: My Active Orders 01/08/19 05:35 CMP [COMPREHENSIVE METABOLIC PN,CMP] [CHEM] AM CRP [C-REACTIVE PROTEIN] [CHEM] AM MAGNESIUM [CHEM] AM 01/09/19 05:11 CBC WITH AUTO DIFF [HEME] AM CMP [COMPREHENSIVE METABOLIC PN,CMP] [CHEM] AM CRP [C-REACTIVE PROTEIN] [CHEM] AM MAGNESIUM [CHEM] AM 01/10/19 05:11 CBC WITH AUTO DIFF [HEME] AM CMP [COMPREHENSIVE METABOLIC PN,CMP] [CHEM] AM CRP [C-REACTIVE PROTEIN] [CHEM] AM MAGNESIUM [CHEM] AM - Plan Plan:: Patient was seen and examined and I agree with the above plan.
[2019-01-08] MEDS ORDERED: Diclofenac Sodium 1% Gel 100 GM Tube TOP PRN (08:37)
[2019-01-08] MEDS ORDERED: Ibuprofen 400 MG Tab PO PRN (08:59)
[2019-01-08] MEDS: Enoxaparin 40 MG/0.4 ML Syringe SUBCUT SCH (10:05)
--- NOTE | 2019-01-08 10:13 | PCM.DCSUM1 ---
Discharge Summary - Hospital Course HPI Initial Comments: This is a 58-year-old female who came to the emergency room today with right foot pain. She states that the pain is severe and started approximately 4 days ago. She had a leave work early on and over the weekend the pain continued. Patient came in today because she could no longer weight-bear without severe sharp pain. When at rest the pain is minimal. 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 In the emergency room x-rays were performed and soft tissue swelling was noted. Also an abnormal mineralization within the base of the third metatarsal with cystic change. This was felt to represent a possible old injury although an acute issue could be evaluated with MRI. Emergency room doctor felt patient would benefit from MRI so patient was admitted. She was started on vancomycin because of an elevated white count and symptoms consistent with cellulitis and in case this is osteomyelitis. Ultrasound looking for DVT was negative. Sodium was slightly low at 133 and her potassium was 3.4. Patient has a history of HER 3 positive lobular breast cancer. She received her first chemotherapy 3 weeks ago. She is due for her next on Friday. Diagnosis: Stroke: No - Discharge Data Discharge Date: 01/08/19 (Admit date: 01/04/19) Discharge Disposition: DC/Tfer to Acute Hospital 02 Condition: Stable - Discharge Diagnosis/Problem(s) (1) Bacteremia SNOMED Code(s): 5161473 ICD Code: R78.81 - BACTEREMIA Status: Acute Priority: High Current Visit: Yes (2) Osteomyelitis SNOMED Code(s): 81919777 ICD Code: M86.9 - OSTEOMYELITIS, UNSPECIFIED Status: Suspected Priority: High Current Visit: Yes Qualifiers: Osteomyelitis type: unspecified type Osteomyelitis location: foot Laterality: right Qualified Code(s): M86.9 - Osteomyelitis, unspecified (3) Breast cancer SNOMED Code(s): 522233479 ICD Code: C50.919 - MALIGNANT NEOPLASM OF UNSP SITE OF UNSPECIFIED FEMALE BREAST Status: Chronic Priority: Medium Current Visit: No Qualifiers: Breast location: unspecified site of breast Estrogen receptor status: unspecified Patient sex: female Laterality: left Qualified Code(s): C50.912 - Malignant neoplasm of unspecified site of left female breast (4) Cellulitis SNOMED Code(s): 011852900 ICD Code: L03.90 - CELLULITIS, UNSPECIFIED Status: Acute Priority: High Current Visit: Yes Qualifiers: Site of cellulitis: extremity Site of cellulitis of extremity: lower extremity Laterality: right Qualified Code(s): L03.115 - Cellulitis of right lower limb (5) Knee pain SNOMED Code(s): 75676176 ICD Code: M25.569 - PAIN IN UNSPECIFIED KNEE Status: Acute Priority: High Current Visit: Yes Qualifiers: Chronicity: acute Laterality: left Qualified Code(s): M25.562 - Pain in left knee (6) Port-A-Cath in place SNOMED Code(s): 898552979 ICD Code: Z95.828 - PRESENCE OF OTHER VASCULAR IMPLANTS AND GRAFTS Status: Acute Priority: High Current Visit: Yes (7) Osteoarthritis SNOMED Code(s): 289105814 ICD Code: M19.90 - UNSPECIFIED OSTEOARTHRITIS, UNSPECIFIED SITE Status: Acute Priority: High Current Visit: Yes Qualifiers: Osteoarthritis location: knee Osteoarthritis type: primary Laterality: left Qualified Code(s): M17.12 - Unilateral primary osteoarthritis, left knee - Patient Summary/Data Consults: Consultations 01/05/19 10:54 Consult to Physician [CONS] Routine 01/06/19 10:41 OT Evaluation and Treatment [CONS] Routine PT Evaluation and Treatment [CONS] Routine 01/06/19 15:53 Consult to Case Management/Cut Out Press Operator [CONS] Routine Labs Pending at D/C: Blood cultures still in progress Hospital Course: Cellulitis right foot with osteomyelitis * Patient started on vancomycin in the emergency room. * White count improved this morning and down from 15,000 to 12,000 * CBC in the morning * I will add Rocephin for gram-negative coverage * Pain control * MRI findings are consistent with osteomyelitis. Blood cultures were also positive. * MRI results: * 1. diffuse soft tissue edema presumably due to cellulitis * 2. Erosions noted within the base of the third and fourth metatarsals with surrounding edema and enhancement. Differential includes erosive arthritis, gout , as well as osteomyelitis. * 3. Degenerative change with joint space narrowing seen within the tarsometatarsal joints. * 4. Mild edema within the cuboid bone with areas of enhancement with same differential as noted above. * IV antibiotics will be tailored to blood culture results. * IV antibiotics for 6 weeks per orthopedics. * Dr. Bowman, Ortho consulted * Port in place - has not been accessed while here Bacteremia * 4/ staph aureus. * Pending further identification and sensitivity * Repeat blood cultures 48 hours after first dose of Abx - Both peripheral and through port per oncology Supraventricular tachycardia * Patient did have a run of ventricular tachycardia that was asymptomatic that spontaneously converted during the day. * Continue monitoring on telemetry. * No episodes aside from inial event HER 3 positive lobular breast cancer * First chemotherapy was 3 weeks ago. Next dose is due on Friday S/P Hyponatremia * Monitor. S/P Hypokalemia Left knee pain, stable * X-ray ordered per ortho * Dr. Bowman reports osteopenia and arthritis. No fracture or dislocation. Surgical plate in place. * Suggests follow-up for steroid injection once bacteremia/infection clears up VTE prophylaxis: Lovenox Discharge planning: Patient will be discharged home with 6 weeks of IV antibiotics after blood culture results narrow antibiotic coverage. CODE STATUS: Full code CM/SW for discharge planning LOS>96 HR due to repeat blood cultures and need for continued IV antibiotics Joana was brought in for right foot cellulitis. Foot x-ray was obtained showing soft tissue swelling and "abnormal mineralization within the base of the third metatarsal with cystic change. As mentioned above this may represent old injury although if patient has acute symptoms to this area MRI could be considered to further evaluate." MRI was further obtained and interpreted by our radiologist, Dr. Harris as "1. Diffuse soft tissue edema presumably due to cellulitis. 2. Erosions noted within the base of the third and fourth metatarsals with surrounding edema and enhancement. Differential includes erosive arthritis, gout as well as osteomyelitis. 3. Degenerative change with joint space narrowing seen within the tarsometatarsal joints. 4. Mild edema within the cuboid bone with areas of enhancement with same differential as noted above." Peripheral vascular ultrasound was also obtained on this leg and was negative. Dr. Bowman, orthopedics was consulted and feels that given the chronic nature of her bony changes on the radiographs this is likely not acute osteomyelitis. He requested an A1c to ensure he is not Charcot arthropathy. He suggests we contact the patient's oncologist along with infectious disease to discuss his case. Patient then began complaining of left knee pain which has worsened during her stay. She reportedly has been utilizing essential oils for this pain in the past and it has worked however she reports is worse now. X -rays obtained showing osteoarthritis. Orthopedics recommends possible injection once infectious symptoms has resolved in an outpatient basis. Blood cultures did return 4 out of 4 positive for staph aureus initially. White count and CRP have continued to trend down. Repeat blood cultures have been negative up to 36 hours. We are still awaiting another organism to grow out. She had been receiving IV vancomycin and Rocephin. Dr. Coates, hematology/oncology, was contacted to discuss progress. Patient does have a port in her left chest and is currently undergoing chemotherapy treatment for breast cancer. She reports she had chemotherapy a few weeks prior and the port is fairly new. Dr. Coates suggest repeating blood cultures in 48 hours. Up until this point the patient's port had not been accessed as she had refused access with nursing. He suggested we obtain blood cultures both peripherally and from port to ensure there is no bacteria there. He also suggests an echo to ensure there is no endocarditis. He suggests we contact [facility] infectious disease specialist to discuss his case. Dr. Lozada, infectious disease specialist is then contacted. She reports that she believes the cause of this is likely the patient's port and suggest port removal. She also agrees the patient will likely need long-term IV antibiotics including vancomycin. She suggests waiting at least 5 days from confirmation of bacteremia to obtain a echo as otherwise we will likely not see any vegetation. This was discussed with hospitalist attending, Dr. Mendoza and our general surgeon merchandising execution associate, Dr. Yap. Decision is made to pursue transfer as the patient will likely be here for some time and we simply do not have the specialists required or infectious disease. [facility] one call contacted and report given to Dr. Izaguirre, hospitalist, who accepts the patient. She'll be transferred via [facility] ground ambulance to [place]. - Discharge Plan *PRESCRIPTION DRUG MONITORING PROGRAM REVIEWED*: No *COPY OF PRESCRIPTION DRUG MONITORING REPORT IN PATIENT ELIANA: No Home Medications: Home Meds Ascorbic Acid [Vitamin C] 1,000 mg PO DAILY 01/04/19 [History] Cholecalciferol (Vitamin D3) [Vitamin D3] 1,000 unit PO DAILY 01/04/19 [History] Magnesium 01/04/19 [History] Vitamin K2 100 mcg PO DAILY 01/04/19 [History] Oxygen Therapy Mode: Room Air Referrals: Skager,Trini, MD [Primary Care Provider] - - Discharge Summary/Plan Comment DC Time >30 min.: Yes (60 minutes ) - General Info Date of Service: 01/08/19 Subjective Update: Into see Joana. She is laying in bed and reports her foot feels okay but her left knee is hurting her more now. We discussed the plan for transfer and she is in agreement to this. She otherwise has no concerns. No nursing concerns. Functional Status: Reports: Pain Controlled, Tolerating Diet, Ambulating, Urinating. Denies: New Symptoms - Review of Systems General: Reports: Weakness. Denies: Fever, Fatigue, Malaise HEENT: Reports: No Symptoms. Denies: Headaches, Sore Throat Pulmonary: Reports: No Symptoms. Denies: Shortness of Breath, Cough, Sputum, Wheezing Cardiovascular: Reports: No Symptoms. Denies: Chest Pain, Palpitations, Dyspnea on Exertion Gastrointestinal: Reports: No Symptoms. Denies: Constipation, Diarrhea, Nausea , Vomiting Genitourinary: Reports: No Symptoms. Denies: Pain Musculoskeletal: Reports: Foot Pain (right foot - improved ), Joint Pain (left knee ) Skin: Reports: No Symptoms. Denies: Cyanosis Neurological: Reports: Confusion (occasionaly confused although is able to hold a conversation for the most part. Likely exacertbated by chemotherapy. ) Psychiatric: Reports: No Symptoms - Patient Data Vitals - Most Recent: Last Vital Signs Temp 98.2 F 01/08/19 05:08 Pulse 86 01/08/19 05:08 Resp 15 01/08/19 05:08 BP 158/90 H 01/08/19 05:08 Pulse Ox 93 L 01/08/19 05:08 Weight - Most Recent: 226 lb 8 oz I&O - Last 24 hours: Intake & Output 01/07/19 01/08/19 01/08/19 22:59 06:59 14:59 Intake Total 2230 1400 180 Output Total 350 2400 Balance 1880 -1000 180 Lab Results - Last 24 hrs: Laboratory Results - last 24 hr 01/08/19 01/08/19 Range/Units 05:35 05:35 WBC 8.59 (3.98-10.04) K/mm3 RBC 2.98 L (3.98-5.22) M/mm3 Hgb 9.0 L (11.2-15.7) gm/L Hct 28.2 L (34.1-44.9) % MCV 94.6 (79.4-94.8) fl MCH 30.2 (25.6-32.2) pg MCHC 31.9 L (32.2-35.5) g/dl RDW Std Deviation 44.9 (36.4-46.3) fL Plt Count 346 (182-369) K/mm3 MPV 9.3 L (9.4-12.3) fl Neut % (Auto) 61.4 (34.0-71.1) % Lymph % (Auto) 17.5 L (19.3-51.7) % [place] % (Auto) 15.0 H (4.7-12.5) % Eos % (Auto) 4.9 (0.7-5.8) Baso % (Auto) 0.5 (0.1-1.2) % Neut # (Auto) 5.28 (1.56-6.13) K/mm3 Lymph # (Auto) 1.50 (1.18-3.74) K/mm3 [place] # (Auto) 1.29 H (0.24-0.36) K/mm3 Eos # (Auto) 0.42 H (0.04-0.36) K/mm3 Baso # (Auto) 0.04 (0.01-0.08) K/mm3 Sodium 137 (136-145) mEq/L Potassium 3.9 (3.5-5.1) mEq/L Chloride 104 (98-107) mEq/L Carbon Dioxide 26 (21-32) mEq/L Anion Gap 10.9 (5-15) BUN 8 (7-18) mg/dL Creatinine 0.7 (0.55-1.02) mg/dL Est Cr Clr Drug Dosing 76.90 mL/min Estimated GFR (MDRD) > 60 (>60) mL/min BUN/Creatinine Ratio 11.4 L (14-18) Glucose 102 (74-106) mg/dL Calcium 8.9 (8.5-10.1) mg/dL Magnesium 1.9 (1.8-2.4) mg/dl Total Bilirubin 0.6 (0.2-1.0) mg/dL AST 92 H (15-37) U/L ALT 131 H (14-59) U/L Alkaline Phosphatase 202 H (46-116) U/L C-Reactive Protein 14.5 H* (<1.0) mg/dL Total Protein 7.0 (6.4-8.2) g/dl Albumin 2.0 L (3.4-5.0) g/dl Globulin 5.0 gm/dL Albumin/Globulin Ratio 0.4 L (1-2) ALMAZ Results - Last 24 hrs: Microbiology 01/04/19 15:40 Aerobic Blood Culture - Final Blood - Venous Staphylococcus Aureus Anaerobic Blood Culture - Final Staphylococcus Aureus 01/04/19 15:15 Aerobic Blood Culture - Final Blood - Venous - Lab Draw Staphylococcus Aureus Anaerobic Blood Culture - Final Staphylococcus Aureus 01/06/19 22:15 Aerobic Blood Culture - Preliminary Blood - Venous NO GROWTH AFTER 1 DAY Anaerobic Blood Culture - Preliminary NO GROWTH AFTER 1 DAY 01/06/19 21:55 Aerobic Blood Culture - Preliminary Blood - Port-A-Cath NO GROWTH AFTER 1 DAY Anaerobic Blood Culture - Preliminary NO GROWTH AFTER 1 DAY 01/06/19 21:40 Aerobic Blood Culture - Preliminary Blood - Port-A-Cath NO GROWTH AFTER 1 DAY Anaerobic Blood Culture - Preliminary NO GROWTH AFTER 1 DAY Med Orders - Current: Current Medications Docusate Sodium (Colace) 100 mg PO DAILY PRN PRN Reason: Constipation Last Admin: 01/06/19 21:19 Dose: 100 mg Enoxaparin Sodium (Lovenox) 40 mg SUBCUT DAILY [facility] Last Admin: 01/08/19 10:05 Dose: 40 mg Hydromorphone HCl (Dilaudid) 0.5 mg IVPUSH Q2H PRN PRN Reason: Pain (severe 7-10) Last Admin: 01/05/19 11:50 Dose: 0.5 mg Ceftriaxone Sodium 2 gm/ (Sodium Chloride) 100 mls @ 200 mls/hr IV Q24H [facility] Last Admin: 01/08/19 00:14 Dose: 200 mls/hr Vancomycin HCl 1 gm/Vancomycin HCl 500 mg/ Sodium Chloride 500 mls @ 250 mls/ hr IV Q12H [facility] Last Admin: 01/08/19 00:52 Dose: 250 mls/hr Ibuprofen (Motrin) 400 mg PO Q4H PRN PRN Reason: Knee pain Ondansetron HCl (Zofran Odt) 4 mg PO Q6H PRN PRN Reason: nausea, able to take PO Oxycodone HCl (Oxycodone) 5 mg PO Q4H PRN PRN Reason: Pain (moderate 4-6) Last Admin: 01/08/19 10:05 Dose: 5 mg Vancomycin HCl (Pharmacy To Dose - Vancomycin) 0 dose .XX ASDIRECTED PRN PRN Reason: PHARMACY TO DOSE Discontinued Medications Diclofenac Sodium (Voltaren 1% Gel) 1 gm TOP QID PRN PRN Reason: Left knee pain Gadobenate Dimeglumine (Multihance) 20 ml IVPUSH ONETIME ONE Stop: 01/05/19 08:21 Last Admin: 01/05/19 08:50 Dose: 20 ml Heparin Sodium (Porcine) (Heparin Lock Flush 100 Units/Ml) 500 units FLUSH ASDIRECTED ONE Stop: 01/06/19 21:46 Last Admin: 01/06/19 22:26 Dose: 500 units Hydromorphone HCl (Dilaudid) 1 mg IVPUSH ONETIME ONE Stop: 01/04/19 15:00 Last Admin: 01/04/19 15:18 Dose: 1 mg Hydromorphone HCl (Dilaudid) 1 mg IVPUSH ONETIME ONE Stop: 01/04/19 19:48 Last Admin: 01/04/19 20:01 Dose: 1 mg Hydromorphone HCl (Dilaudid) 0.5 mg IVPUSH Q2H PRN PRN Reason: Pain (severe 7-10) Vancomycin HCl 2 gm/ Sodium (Chloride) 250 mls @ 250 mls/hr IV ONETIME ONE Stop: 01/04/19 17:30 Last Admin: 01/04/19 17:34 Dose: Not Given Vancomycin HCl 2 gm/ Sodium (Chloride) 500 mls @ 250 mls/hr IV ONETIME ONE Stop: 01/04/19 18:30 Last Admin: 01/04/19 17:34 Dose: 250 mls/hr Vancomycin HCl 1 gm/ Sodium (Chloride) 250 mls @ 250 mls/hr IV ONETIME ONE Stop: 01/04/19 18:29 Last Admin: 01/04/19 17:50 Dose: Not Given Vancomycin HCl 1.25 gm/ Sodium (Chloride) 250 mls @ 167 mls/hr IV Q12H [facility] Last Admin: 01/06/19 11:46 Dose: Not Given Vancomycin HCl 1 gm/Vancomycin HCl 500 mg/ Sodium Chloride 500 mls @ 250 mls/ hr IV Q12H [facility] Last Admin: 01/06/19 12:20 Dose: Not Given Sodium Chloride (Saline Flush) 10 ml FLUSH ASDIRECTED [facility] Stop: 01/05/19 11:00 Last Admin: 01/05/19 08:50 Dose: 10 ml - Exam Quality Assessment: Reports: DVT Prophylaxis General: Reports: Alert, Oriented, Cooperative, No Acute Distress HEENT: Reports: Pupils Equal, Pupils Reactive, EOMI, Mucous Membr. Moist/[place] Neck: Reports: Supple, Trachea Midline Lungs: Reports: Clear to Auscultation, Normal Respiratory Effort Cardiovascular: Reports: Regular Rate, Regular Rhythm GI/Abdominal Exam: Normal Bowel Sounds, Soft, Non-Tender, No Organomegaly, No Distention (Female) Exam: Deferred Rectal (Female) Exam: Deferred Back Exam: Reports: Normal Inspection, Full Range of Motion Extremities: Normal Capillary Refill, Pedal Edema (left foot very mildly edematous 2/2 inflammation ), Leg Pain (left knee 2/2 osteoarthritis; Right foot - improved ), Limited Range of Motion (2/2 pain ), Redness (improving - on dorsal aspect of right foot ). No: Increased Warmth Skin: Reports: Warm, Dry, Intact Wound/Incisions: Reports: No Drainage, Erythema Improving Neurological: Reports: No New Focal Deficit Psy/Mental Status: Reports: Alert
== END 2019-01-08 13:20 | DRG 540 ==
LOC: SUPCPDRO 14:22 → JD.ED 14:22 → JD.MS 18:46
PROVIDERS: ADMIT Family Medicine; ATTEND Family Medicine
DX: M86.8X7 Other osteomyelitis, ankle and foot (principal); R78.81 Bacteremia; L03.115 Cellulitis of right lower limb; I47.1 Supraventricular tachycardia; E87.1 Hypo-osmolality and hyponatremia; C50.912 Malignant neoplasm of unspecified site of left female breast; M17.12 Unilateral primary osteoarthritis, left knee; E87.6 Hypokalemia; M85.80 Other specified disorders of bone density and structure, unspecified site; B95.61 Methicillin susceptible Staphylococcus aureus infection as the cause of diseases classified elsewhere; H54.7 Unspecified visual loss; F41.9 Anxiety disorder, unspecified; Z95.828 Presence of other vascular implants and grafts; Z17.0 Estrogen receptor positive status [ER+]; Z88.8 Allergy status to other drugs, medicaments and biological substances; Z98.51 Tubal ligation status
CPT/HCPCS: 36415; 73560-26-LT; 73560-LT; 73630-26-RT; 73630-RT; 73720-26-RT; 73720-RT; 80053; 80202; 83036; 83735; 84100; 84550; 85025; 85652; 86140; 87040; 87077; 87186; 93005; 93971-26-RT; 93971-RT; 94760; 96374; 97110-GO; 97110-GP; 97116-GP; 97124-GP; 97140-GP; 97162-GP; 97167-GO; 97530-GO; 99284; 99285-25; A9270-GY; A9577; J0696; J1170; J1642; J1650; J3370; J7030; J7040; J7050

== ENCOUNTER 2019-08-20 16:31 | Emergency (ER) | payer MEDICAID, OTHER ==
--- NOTE | 2019-08-20 18:37 | US ---
Right lower extremity deep venous ultrasound: Duplex and color flow imaging was obtained of the right common femoral, proximal superficial femoral, popliteal, posterior tibial, posterior tibial and peroneal veins. Left common femoral vein was also evaluated. Comparison: No previous venous imaging. Findings: Peroneal vein not visualized. Other veins show normal phasic flow, augmentation and compression. Impression: 1. Nonvisualized peroneal vein. 2. No evidence of deep venous thrombosis within the right lower extremity or within the left common femoral vein. Diagnostic code #2 This report was dictated in [place] Standard Time
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
== END 2019-08-20 19:00 | disposition home or self-care (01) ==
LOC: JD.ED 16:31
DX: S86.911A Strain of unspecified muscle(s) and tendon(s) at lower leg level, right leg, initial encounter (principal); Z88.1 Allergy status to other antibiotic agents; X58.XXXA Exposure to other specified factors, initial encounter; Y93.01 Activity, walking, marching and hiking
CPT/HCPCS: 93971-26-RT; 93971-RT; 99282; 99283-25

== ENCOUNTER 2020-09-20 07:07 | Day surgery (SDC) | payer OTHER ==
[~2020-09-20 07:07] MED LIST: Lactated Ringers 1,000 ML IV SCH; Lidocaine 1%/Sod Bicarbonate in NS 8.4% 1 ML Syringe IDERM PRN; Sodium Chloride 0.9% 10 ML Syringe FLUSH PRN
[2020-09-20] MEDS ORDERED: Lidocaine 1% 4 ML ONE (07:18)
[2020-09-20] MEDS ORDERED: fentaNYL 100 MCG/2 ML SDV ONE (07:18)
[2020-09-20] MEDS ORDERED: Propofol 200 MG/20 ML SDV ONE ×2 (07:18→08:23)
[2020-09-20] MEDS ORDERED: Midazolam 1 MG/ML 2 ML SDV ONE (07:18)
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
--- NOTE | 2020-09-20 09:00 | PCM.OPNOTE ---
- General Post-Op/Procedure Note Date of Surgery/Procedure: 09/20/20 Operative Procedure(s): Colonoscopy Findings: 1. Diverticulosis 2. Ascending colon polyp x4 3. Transverse colon polyp x8 Pre Op Diagnosis: Family history of colon cancer and personal history of colon polyps Post-Op Diagnosis: same Anesthesia Technique: MAC Primary Surgeon: Meryl Delong Anesthesia Provider: Pedro Christianson Pathology: 1. Ascending colon polyp x4 2. Transverse colon polyps x8 Fluid Replacement, Intraop: 600 Complications: none apparent Condition: Good
--- NOTE | 2020-09-20 09:02 | PCM48HPAN ---
Post Anesthesia Note - EVALUATION WITHIN 48HRS OF ANESTHETIC Vital Signs in Normal Range: Yes Patient Participated in Evaluation: Yes Respiratory Function Stable: Yes Airway Patent: Yes Cardiovascular Function Stable: Yes Hydration Status Stable: Yes Pain Control Satisfactory: Yes Nausea and Vomiting Control Satisfactory: Yes Mental Status Recovered: Yes Vital Signs: Last Vital Signs Temp 36.6 C 09/20/20 07:10 Pulse 81 09/20/20 07:10 Resp 16 09/20/20 07:10 BP 121/84 09/20/20 07:10 Pulse Ox 97 09/20/20 07:10
--- NOTE | 2020-09-20 09:08 | PCM.PRNOTE ---
- Free Text/Narrative Note: Operative Report Date of Surgery/Procedure: September 20, 2020 Operative Procedure: Colonoscopy to cecum Pre Op Diagnosis: family history of colon cancer and personal history of colon polyps Post-Op Diagnosis: same Surgeon: Meryl Delong Anesthesia Technique: MAC Anesthesia Provider: Pedro Christianson CRNA IV Fluid Replacement, Intraop: 600cc Output, Urine Amount: 0cc EBL : 0cc Findings: 1. Diverticulosis 2. Ascending colon polyps x4 3. Transverse colon polyps x8 Specimens: 1. Ascending colon polyps x4 2. Transverse colon polyps x8 Indication: The patient is a 60 year-old lady who presented to the outpatient clinic requesting colorectal cancer screening. The patient has a history of colon cancer in a first degree relative and a personal history of colon polyps. We discussed the procedure of a colonoscopy including the polypectomy and biopsy. Risks of bleeding and perforation were discussed, the patient understood and wished to proceed. Written and consent was obtained Description of the procedure: The patient was brought to the endoscopy suite and placed in the left lateral decubitus position. Appropriate monitors were applied. The patient was given MAC anesthesia. An anorectal examination was performed, revealing no significant external abnormalities. The scope was placed into the rectum and advanced to cecum with some difficulty requiring external abdominal pressure. The patients cecum was entered, and the ileocecal valve and appendiceal orifice were identified and normal. At this point, the scope was withdrawn, paying careful attention to the mucosa. The patient had good bowel prep, allowing for visualization of 85-90% of the mucosa. Ascending colon polyps noted ranging from 2 to 4 mm. These were removed with a cold jumbo biopsy forceps. Additionally multiple transverse colon polyps were noted ranging from 2 to 3 mm and flat. 8 of these polyps were removed with a jumbo cold biopsy forceps. The patient was experiencing colonic spasm that prevented full pension of the bowel and did not allow for adequate visualization. The scope was removed while attempting further visualization, but this was not complete or adequate due to the colonic spasm. In the rectum, the scope was retroflexed and no abnormalities were noted, except for some hemorrhoidal tissue. The scope was placed back in the lumen and the excess air was aspirated. The patient tolerated the procedure well. Complications: none apparent Condition: Good, transported to PACU in stable condition Meryl Delong MD General Surgery
== END 2020-09-20 09:54 | disposition home or self-care (01) ==
LOC: JD.SDS 07:07
PROVIDERS: ATTEND Surgery
DX: Z12.11 Encounter for screening for malignant neoplasm of colon (principal); D12.2 Benign neoplasm of ascending colon; D12.3 Benign neoplasm of transverse colon; E78.00 Pure hypercholesterolemia, unspecified; F41.9 Anxiety disorder, unspecified; E55.9 Vitamin D deficiency, unspecified; Z80.0 Family history of malignant neoplasm of digestive organs; Z98.890 Other specified postprocedural states; Z79.82 Long term (current) use of aspirin; Z79.899 Other long term (current) drug therapy; Z88.8 Allergy status to other drugs, medicaments and biological substances
CPT/HCPCS: 45380; J1642; J2001; J2250; J2704; J3010; J7120; 00812

== ENCOUNTER 2021-03-07 08:22 | Day surgery (SDC) | payer OTHER ==
[~2021-03-07 08:22] MED LIST changes: +Lidocaine 1% 4 ML ONE; +Midazolam 1 MG/ML 2 ML SDV ONE; +Propofol 200 MG/20 ML SDV ONE; +fentaNYL 100 MCG/2 ML SDV ONE
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
--- NOTE | 2021-03-07 11:15 | PCM.OPNOTE ---
- General Post-Op/Procedure Note Date of Surgery/Procedure: 03/07/21 Operative Procedure(s): incomplete colonoscopy Findings: 1. tortuous colon and significant looping 2. Diverticulosis Pre Op Diagnosis: history of colon polyps Post-Op Diagnosis: same Anesthesia Technique: BHAVYA Primary Surgeon: Meryl Delong Anesthesia Provider: Isaac Fostre Pathology: none Fluid Replacement, Intraop: 900 Output, Urine Amount: 0 EBL in mLs: 0 Complications: none apparent Condition: Good
--- NOTE | 2021-03-07 11:19 | PCM48HPAN ---
Post Anesthesia Note - EVALUATION WITHIN 48HRS OF ANESTHETIC Vital Signs in Normal Range: Yes Patient Participated in Evaluation: Yes Respiratory Function Stable: Yes Airway Patent: Yes Cardiovascular Function Stable: Yes Hydration Status Stable: Yes Pain Control Satisfactory: Yes Nausea and Vomiting Control Satisfactory: Yes Mental Status Recovered: Yes Vital Signs: Last Vital Signs Temp 98.6 F 03/07/21 08:15 Pulse 67 03/07/21 08:15 Resp 16 03/07/21 08:15 BP 146/96 H 03/07/21 08:15 Pulse Ox 97 03/07/21 08:15 1114 100/61 94% 72 14 97.9
--- NOTE | 2021-03-07 11:22 | PCM.PRNOTE ---
- Free Text/Narrative Note: Operative Report Date of Surgery/Procedure: March 07, 2021 Operative Procedure: Incomplete Colonoscopy to transverse colon Pre Op Diagnosis: history of colon polyps Post-Op Diagnosis: same Surgeon: Meryl Delong MD Anesthesia Technique: MAC Anesthesia Provider: Isaac Foster CRNA IV Fluid Replacement, Intraop: 900cc Output, Urine Amount: 0cc EBL : 0cc Findings: tortuous colon with significant looping, diverticulosis Specimens: same Indication: The patient is a 61 year-old lady who presented to the outpatient clinic for colonoscopy evaluation. The patient has a history of colon polyps with unretrieved polyps in the past. We discussed the procedure of a screening colonoscopy including the polypectomy and biopsy. Risks of bleeding and perforation were discussed, the patient understood and wished to proceed. Written and consent was obtained Description of the procedure: The patient was brought to the endoscopy suite and placed in the left lateral decubitus position. Appropriate monitors were applied. The patient was given MAC anesthesia. An anorectal examination was performed, revealing no external abnormalities. The scope was placed into the rectum and advanced to the transverse colon with difficulty requiring external abdominal pressure and change in patient position to supine. However, the patient's cecum could not be reached due to significant tortuosity and looping of the scope in the colon. At this point, the scope was withdrawn, paying attention to the mucosa. The patient had good bowel prep, allowing for visualization of 90-95% of the mucosa after some suctioning. Diverticulosis was noted. In the rectum, the scope was retroflexed and no abnormalities were noted, except for some hemorrhoidal tissue. The scope was placed back in the lumen and the excess air was aspirated. The patient tolerated the procedure well. Complications: none apparent Condition: Good, transported to PACU in stable condition Meryl Delong MD General Surgery
== END 2021-03-07 12:05 | disposition home or self-care (01) ==
LOC: JD.SDS 08:22
PROVIDERS: ATTEND Surgery
DX: Z12.11 Encounter for screening for malignant neoplasm of colon (principal); K57.30 Diverticulosis of large intestine without perforation or abscess without bleeding; E55.9 Vitamin D deficiency, unspecified; E78.5 Hyperlipidemia, unspecified; E66.9 Obesity, unspecified; Z86.010 Personal history of colon polyps; Z90.49 Acquired absence of other specified parts of digestive tract; Z98.890 Other specified postprocedural states; Z88.8 Allergy status to other drugs, medicaments and biological substances; Z80.0 Family history of malignant neoplasm of digestive organs; Z68.39 Body mass index [BMI] 39.0-39.9, adult
CPT/HCPCS: 45378; J2250; J2704; J3010; J7120; 00811